=== PATIENT | male | born 1940 | race Caucasian/White ===

== ENCOUNTER 2018-04-16 20:42 | Inpatient (IN) | payer MEDICARE, OTHER, SELFPAY ==
[2018-04-16 20:42] VITALS: BP 140/75; PULSE 86; RESP 20; TEMP 36.7; O2SAT 92; BMI 33.6
[2018-04-16 21:15] VITALS: O2SAT 96
[2018-04-16] MEDS: Aspirin 81 MG TAB.CHEW 324 MG PO (21:28)
[2018-04-16 21:29] LABS: Absolute Lymphocyte Count 0.85 X10^3/ul (0.83-4.51); Absolute Neutrophil Count 2.2 X10^3/uL (2.0-7.7); Basophil# 0.01 X10^3/uL; Basophil% 0.3 % (0-1); Eosinophil# 0.16 X10^3/uL; Eosinophils% 4.4 % (0-5); Hemoglobin 11.9 g/dl (13.0-16.5); Lymphocyte # 0.85 X10^3/ul (4.0); Lymphocyte % 23.3 % (19-41); Mean Corp Hgb Conc 31.3 g/gl (32-36); Mean Corpuscular Hgb 32.8 pg (27.0-32.0); Mean Corpuscular Volume 104.7 fL (80-94); Mean Platelet Vol. 10.7 fl (6.2-12.0); Monocyte# 0.43 X10^3/uL; Monocyte% 11.8 % (0-10); Neutrophil % 60.2 % (47-70); Platelet Count 108 K/mm3 (150-450); RBC Distribution Width CV 15.3 % (11.6-14.6); RBC Distribution Width SD 58.6 fl (35.1-43.9); Red Blood Count 3.63 M/mm3 (4.6-6.2); White Blood Count 3.7 K/mm3 (4.4-11.0)
[2018-04-16 21:30] VITALS: PULSE 88; RESP 18
[2018-04-16 21:30] LABS: POSITIVE COUNT NO; POSITIVE DIFFERENTIAL NO; POSITIVE MORPHOLOGY NO
[2018-04-16] MEDS: Albuterol 2.5 MG/3 ML VIAL.NEB. INHALATION (21:30)
[2018-04-16 22:04] LABS: Anion Gap 7 (5-15); BUN 31 mg/dL (7-18); BUN/Creat Ratio 20.1 RATIO (10-20); Calcium,Total 8.6 mg/dL (8.5-10.1); Chloride 111 mmol/L (98-107); Creatinine, Serum 1.54 mg/dL (0.70-1.30); EST Glomerular Filtration Rate 46 mL/min (>60); Est Glom Filt Rate - Afr Amer 56 mL/min (>60); Estimated Creatinine Clearance 37.01 ml/min; Glucose 98 mg/dL (74-106); Potassium 4.2 mmol/L (3.5-5.1); Sodium Level 143 mmol/L (136-145)
--- NOTE | 2018-04-16 22:24 | ED.DCSUM_ITS ---
- ER Visit Summary Date of Service: 04/16/18 Chief Complaint: Shortness of breath History of Present Illness: The patient is a [address] Aubrey Dailey and his primary care physician is through [facility], but he does not remember the name. He reports he has shortness of breath began 2 days ago. Is severe when he walks around. He is not short of breath at rest. He denies any chest pain, pressure, or tightness. No fever, chills, or cough. Ports that this is similar to when he had pneumonia in the past. Physical Examination: Vitals: Stable. Afebrile. General: Well-nourished and well-developed. Head: Normocephalic atraumatic. Neck: Supple, no lymphadenopathy. No JVD. Nontender. Cardiovascular: Regular rhythm with a 2 out of 6 systolic murmur. Respiratory: No respiratory distress. Rhonchi at the bases bilaterally. He does have mild wheezing with good air movement. Abdominal: Soft, nontender, nondistended, normal bowel sounds. No guarding, rebound, or peritoneal signs. Back: Nontender. Extremities: Nontender, 1+ pitting edema lower extremities bilaterally. Skin: Normal color, no rash. Neurologic: Alert and oriented ?3. Cranial nerves II through XII are intact. Normal strength and sensation. Psych: Normal affect. Test Results: EKG is A. fib at [address] changes. Troponins negative. Chem-7 more for chloride 111, BUN 31, creatinine 1.54. CBC is more for white count 3.7, H&H 11.9 30.0, platelets 108, monocytes of 12. Chest x- ray shows bilateral lower lobe infiltrates and small bilateral pleural effusions. Emergency Department Course and Treatment: Patient was treated with an albuterol aerosol. Is given Rocephin and Zithromax IV. Treatment Plan: Patient was discussed with the hospitalist. He will be admitted to the hospital for further relation and treatment. Disposition: Admitted in improved condition. Impression: 1. Pneumonia, community acquired. 2. Chronic renal insufficiency. This note was generated with [employer].itation software. It may contain incorrect words, spelling, and punctuation that were not noted in review of the chart prior to signing ED Disposition - Plan for ED Patient: Chief Complaint: Shortness of Breath Referrals: Loida Tolentino MD [Primary Care Provider] -
[2018-04-16 22:53] VITALS: BP 138/77; PULSE 86; RESP 22; O2SAT 96
[2018-04-16] MEDS: Ceftriaxone 1 GM/50 ML BAG IV (22:53)
--- NOTE | 2018-04-16 23:07 | PCM.HP.STD ---
Problem List (1) Community acquired pneumonia Status: Acute (2) Atrial fibrillation Status: Chronic (3) Hypertension Status: Chronic (4) S/P CABG x 2 Status: Acute (5) Chronic kidney disease Status: Acute History of Present Illness Date of Admission: 04/16/18 Chief Complaint: Shortness of breath with exertion ?2 to 3 days. The patient is a 78 year old M with a significant history of CVA, CAD status post double CABG and stents; hypertension; A. fib on Coumadin; hyperlipidemia; tobacco abuse; CKD; and questionable COPD who presents with a 3-4 days of progressively worsening shortness of breath with exertion. Also he has some chest discomfort with taking a deep breath. Patient denies any fever, cough, chest pain or chills. Associated with his symptoms is wheezing. Per family last time patient had a pneumonia he had the same symptoms. Past Medical History Past Medical History (Chronic Problems): Chronic Problems Chronic left arterial ischemic stroke, MCA (middle cerebral artery) (Chronic) Hypothyroidism (Chronic) Hyperlipidemia (Chronic) CAD (coronary artery disease) (Chronic) Colon cancer (Chronic) Atrial fibrillation (Chronic) Hypertension (Chronic) Sleep apnea (Chronic) Allergies No Known Allergies Allergy (Verified 04/16/18 20:44) Home Medications: Ambulatory Orders Medication Instructions Recorded Acetaminophen [Tylenol] 325 mg PO PRN PRN 01/17/16 Multivitamin [Daily Multiple 1 tab PO DAILY 01/17/16 Vitamin] Furosemide [Lasix] 40 mg PO DAILY #30 tablet 02/08/16 Gabapentin [Neurontin] 300 mg PO DAILY #30 capsule 02/08/16 Iron Polysaccharide Complex 150 mg PO DAILYCM #30 capsule 02/08/16 [Ferrex 150] traMADol [Ultram] 1 tab PO Q8H PRN PRN #30 tablet 02/08/16 Aspirin [Aspirin, Baby] 81 mg PO DAILY@0800 04/16/18 Atenolol [Tenormin (beta isaiah)] 25 mg PO DAILY 04/16/18 Levothyroxine [Synthroid] 175 mcg PO DAILY 04/16/18 Spironolactone [Spironolactone] 12.5 mg PO DAILY 04/16/18 Warfarin [Coumadin] 5 mg PO DAILY@1700 04/16/18 Surgical History: coronary bypass surgery - x 2, - - Aortic Valve replacement, PFO closure. Psychiatric History: No pertinent psych hx Lives: Alone Smoking Status: Former smoker Tobacco Use: Chew - *Family History Maternal History Items: Cancer, Dementia, Heart Disease Paternal History Items: Cancer, Dementia, Heart Disease Review of Systems Constitutional: Denies: Chills, Fever, Weight Change HEENT: Denies: Head Aches, Sinus Congestion, Sinus Drainage Cardiovascular: Denies: Chest Pain, Palpitations Respiratory: Reports: Shortness of breath upon exertion. Denies: Cough Gastrointestinal: Denies: Abdominal Pain, Nausea, Vomiting Genitourinary: Denies: Dysuria Musculoskeletal: Reports: Arm Pain Skin: Denies: Rash, Wounds Neurological: Denies: Numbness, Tingling, Focal weakness Psychiatric: Denies: Anxiety, Depression, Homicidal Ideations, Suicidal Ideations Hematologic/ Lymphatic: Denies: Easy Bruising, Easy Bleeding VTE Information - Inpt Only VTE Present on Admission: No VTE Mechan Device Prophylaxis: None VTE Pharm Prophylaxis ordered?: No Reason prophylaxis not ordered:: Treatment Not Indicated - On Coumadin Patient Problems: Active and Suspected Problems Community acquired pneumonia (Acute) - Physical Exam General: Alert, Oriented x3, Cooperative HEENT: Atraumatic, PERRLA, EOMI, Normocephalic Neck: Supple, No JVD, Negative Carotid Bruits Lungs: Rales - Bilateral at the middle and lower lung garcia., Wheezes - Mild Cardiovascular: - - Irregularly irregular rate and rhythm. Abdomen: Bowel Sounds Present, Soft, Non Tender Extremities: No edema, Capillary Refill Less than 3 Seconds Skin: No rashes, No breakdown Musculoskeletal: No Tenderness to Palpation of Joints or Extremities Neurological: Cranial nerves II-XII grossly intact Psych/Mental Status: Normal Affect, Appropriate Vital Signs Temp Pulse Resp BP Pulse Ox 98.0 F 86 22 H 138/77 H 96 04/16/18 20:42 04/16/18 22:53 04/16/18 22:53 04/16/18 22:53 04/16/18 22:53 Oxygen Flow Rate (L/min) 2 Oxygen Delivery Method Nasal Cannula Weight: 100.3 kg Body Mass Index (BMI) 33.6 Laboratory Tests Past 24 Hrs 04/16/18 04/16/18 21:19 21:19 WBC 3.7 L RBC 3.63 L Hgb 11.9 L Hct 38.0 L MCV 104.7 H MCH 32.8 H MCHC 31.3 L RDW 15.3 H RDW Differential 58.6 H Plt Count 108 L MPV 10.7 Immature Gran % (Auto) 0.000 Neut % (Auto) 60.2 Lymph % (Auto) 23.3 [place] % (Auto) 11.8 H Eos % (Auto) 4.4 Baso % (Auto) 0.3 Absolute Neuts (auto) 2.2 Absolute Lymphs (auto) 0.85 Total Counted Not Reportable Sodium 143 Potassium 4.2 Chloride 111 H Carbon Dioxide 25.0 Anion Gap 7 BUN 31 H Creatinine 1.54 H Estim Creat Clear Calc 37.01 Est GFR (MDRD) Af Amer 56 L Est GFR (MDRD) Non-Af 46 L BUN/Creatinine Ratio 20.1 H Glucose 98 Calcium 8.6 Troponin I < 0.015 Assessment/Plan All Active Problems Community acquired pneumonia (Acute) Status post patent foramen ovale closure (Acute) Aortic valve replaced (Acute) Chronic kidney disease (Acute) S/P CABG x 2 (Acute) The patient is a 78 year old M with a significant history of CVA, CAD status post double CABG and stents; hypertension; A. fib on Coumadin; hyperlipidemia; tobacco abuse; CKD; and questionable COPD who presents with a 3-4 days of progressively worsening shortness of breath and found to have radiographic findings of bilateral pneumonia right greater than left consistent with community-acquired pneumonia. Committee acquired pneumonia The patient was started on azithromycin and ceftriaxone at the ED. Azithromycin and ceftriaxone continued Streptococcus antigen and Legionella antigen ordered. Scheduled DuoNeb As needed albuterol Chronic atrial fibrillation Coumadin continued. Of note azithromycin can potentiate Coumadin. PT/INR in a.m. CKD Creatinine is stable. COPD Per family the patient has questionable COPD Discussed with patient and family for outpatient comprehensive follow-up. Tobacco abuse Counseled History of CAD status post stents and CABG Aspirin continued Hypertension Aldactone and Lasix continued Hypothyroidism Synthroid continued DVT prophylaxis Not indicated. Patient on Coumadin. Code Visit Inpatient E&M: 75092 Init Hosp L3
[2018-04-16 23:17] VITALS: BP 150/71; PULSE 85; RESP 24; O2SAT 96
[2018-04-16 23:33] VITALS: BMI 33.0
[2018-04-16 23:35] VITALS: BP 142/75; PULSE 86; RESP 20; TEMP 36.6; O2SAT 98
[2018-04-17] VITALS (10 sets, daily range): BP systolic 128–158; BP diastolic 79–101; PULSE 84–105; RESP 16–20; TEMP 36.4–36.8; O2SAT 83–97
[2018-04-17 00:58] LABS: International Normalized Ratio 3.3; Prothrombin Time (Protime)PT. 34.1 SECONDS (11.7-14.9)
[2018-04-17] MEDS: Ipratropium/Albuterol Sulfate 3 ML AMPUL.NEB INHALATION ×4 (05:00→23:46)
[2018-04-17] MEDS: Levothyroxine 175 MCG Tablet PO (05:01)
[2018-04-17 06:38] LABS: Absolute Lymphocyte Count 0.92 X10^3/ul (0.83-4.51); Absolute Neutrophil Count 2.2 X10^3/uL (2.0-7.7); Basophil# 0.02 X10^3/uL; Basophil% 0.5 % (0-1); Eosinophil# 0.18 X10^3/uL; Eosinophils% 4.6 % (0-5); Hematocrit 37.2 % (40-54); Hemoglobin 11.6 g/dl (13.0-16.5); Lymphocyte # 0.92 X10^3/ul (4.0); Lymphocyte % 23.7 % (19-41); Mean Corp Hgb Conc 31.2 g/gl (32-36); Mean Corpuscular Hgb 33.3 pg (27.0-32.0); Mean Corpuscular Volume 106.9 fL (80-94); Mean Platelet Vol. 10.5 fl (6.2-12.0); Monocyte# 0.54 X10^3/uL; Monocyte% 13.9 % (0-10); Neutrophil # 2.22 X10^3/uL (2.7-7.7); Platelet Count 100 K/mm3 (150-450); RBC Distribution Width CV 14.9 % (11.6-14.6); Red Blood Count 3.48 M/mm3 (4.6-6.2); White Blood Count 3.9 K/mm3 (4.4-11.0)
[2018-04-17 06:43] LABS: POSITIVE COUNT NO; POSITIVE DIFFERENTIAL NO; POSITIVE MORPHOLOGY NO
[2018-04-17 07:04] LABS: Anion Gap 10 (5-15); BUN 33 mg/dL (7-18); BUN/Creat Ratio 24.3 RATIO (10-20); Calcium,Total 8.6 mg/dL (8.5-10.1); Chloride 114 mmol/L (98-107); Creatinine, Serum 1.36 mg/dL (0.70-1.30); EST Glomerular Filtration Rate 54 mL/min (>60); Est Glom Filt Rate - Afr Amer 65 mL/min (>60); Estimated Creatinine Clearance 41.91 ml/min; Glucose 93 mg/dL (74-106); Potassium 4.3 mmol/L (3.5-5.1); Sodium Level 146 mmol/L (136-145)
[2018-04-17] MEDS: 0.9% NaCl Peripheral Flush Adult/Peds IV (10:35)
[2018-04-17] MEDS: Ceftriaxone 1 GM/50 ML BAG IV (10:35)
[2018-04-17] MEDS: Furosemide 40 MG Tablet PO (10:38)
[2018-04-17] MEDS: Gabapentin 300 MG Capsule PO (10:38)
[2018-04-17] MEDS: Atenolol 25 MG Tablet PO (10:38)
[2018-04-17] MEDS: Spironolactone 25 MG Tablet 12.5 MG PO (10:38)
[2018-04-17] MEDS: Multivitamins,Therapeutic Tablet 1 TABLET PO (10:42)
[2018-04-17] MEDS: Aspirin 81 MG TAB.CHEW PO (10:42)
[2018-04-17] MEDS: Iron Polysaccharide Complex 150 MG CAPSULE PO (10:42)
--- NOTE | 2018-04-17 11:55 | CASEMGMT ---
Face to Face with patient for initial transition planning/care coordination assessment. DULCE MIRANDA introduced self and role at [facility], daughter voices understanding and consents to assessment at this time. Pt is in the bathroom chaning at this time in no distress. Care providers, pharmacy, and demographics verified. See attached link. Pt/daughter voice no further concerns/needs at this time. Advised pt to ask for CM if any further questions/concerns/needs arise, voices understanding. CM to follow for home oxygen and any further discharge planning/needs. PLAN[place] D[place]DA
--- NOTE | 2018-04-17 12:19 | PCM.PROGNOTE ---
Patient Problems: Active and Suspected Problems Community acquired pneumonia (Acute) Subjective: Patient seen and examined. States shortness of breath is improved since admission. Complains of intermittent productive cough with dark sputum. Denies fever, chills. Denies chest pain. - Physical Exam General: Alert, Oriented x3, Cooperative, No apparent distress HEENT: Atraumatic, PERRLA, EOMI, Normocephalic Neck: Supple, No JVD, Negative Carotid Bruits Lungs: Diminished, Rales Cardiovascular: Regular rate, Regular Rhythm, Normal S1, Normal S2 Abdomen: Bowel Sounds Present, Soft, Non Tender, Non-Distended Extremities: No clubbing, No cyanosis, No edema, Capillary Refill Less than 3 Seconds Skin: No rashes, No breakdown Musculoskeletal: No Tenderness to Palpation of Joints or Extremities Neurological: Cranial nerves II-XII grossly intact, Neuro grossly intact Psych/Mental Status: Normal Affect, Appropriate Vital Signs Temp Pulse Resp BP Pulse Ox 97.6 F L 87 16 158/101 H 97 04/17/18 09:45 04/17/18 09:45 04/17/18 09:45 04/17/18 09:45 04/17/18 09:45 Oxygen Flow Rate (L/min) 2 Oxygen Delivery Method Nasal Cannula Weight: 217 lb 2.485 oz Body Mass Index (BMI) 33.0 Intake and Output for Last 24 Hours 04/15/18 04/16/18 04/17/18 23:59 23:59 23:59 Intake Total 498.8 / 498.8 Output Total 200 / 200 Balance 298.8 / 298.8 Microbiology Past 72 Hours 04/17/18 04:55 Legionella Antigen - Final Urine, Clean Catch 04/17/18 04:55 Streptococcus pneumoniae Antigen (M - Final Urine, Clean Catch Laboratory Tests Past 24 Hrs 04/17/18 04/17/18 05:55 05:55 WBC 3.9 L RBC 3.48 L Hgb 11.6 L Hct 37.2 L MCV 106.9 H MCH 33.3 H MCHC 31.2 L RDW 14.9 H RDW Differential 57.0 H Plt Count 100 L MPV 10.5 Immature Gran % (Auto) 0.300 Neut % (Auto) 57.0 Lymph % (Auto) 23.7 [place] % (Auto) 13.9 H Eos % (Auto) 4.6 Baso % (Auto) 0.5 Absolute Neuts (auto) 2.2 Absolute Lymphs (auto) 0.92 Total Counted Not Reportable Sodium 146 H Potassium 4.3 Chloride 114 H Carbon Dioxide 22.0 Anion Gap 10 BUN 33 H Creatinine 1.36 H Estim Creat Clear Calc 41.91 Est GFR (MDRD) Af Amer 65 Est GFR (MDRD) Non-Af 54 L BUN/Creatinine Ratio 24.3 H Glucose 93 Calcium 8.6 Medical Necessity - Tobacco Use Smoking Status: Former smoker Tobacco Use: Chew Assessment/Plan All Active Problems Community acquired pneumonia (Acute) Status post patent foramen ovale closure (Acute) Aortic valve replaced (Acute) Chronic kidney disease (Acute) S/P CABG x 2 (Acute) 1. Community acquired pneumonia with associated acute hypoxia-chest x-ray admission with small bilateral pleural effusions, bilateral lower lobe pneumonia. Afebrile. No leukocytosis. Continue supplement oxygen to maintain O2 at or above 90%. Patient will require walking pulse ox prior to discharge. Continue albuterol and DuoNeb aerosols. Continue azithromycin and Rocephin. Urine for strep and Legionella negative. Send sputum for culture. IS/PEP. 2. Chronic atrial fibrillation on chronic anticoagulation with Coumadin-rate controlled. Continue atenolol and Coumadin. INR 3.3 on admission. 3. Chronic kidney disease-stable, monitor BMP. 4. CAD status post CABG and stents-continue aspirin, beta-isaiah. 5. COPD-no acute exacerbation. Continue outpatient follow-up with Dr. Caldera. 6. Hypertension-stable, continue home regimen. 7. Hypothyroidism-continue Synthroid. 8. History of tobacco use-denies recent or current use. 9. Iron deficiency anemia-continue iron supplementation. DVT prophylaxis-Coumadin This patient was seen by CHRISTINA oMtley under the supervision of Dr. Maldonado.
[2018-04-18 02:45] VITALS: BP 131/72; PULSE 105; RESP 18; TEMP 36.6; O2SAT 96
[2018-04-18] MEDS: Levothyroxine 175 MCG Tablet PO (06:52)
[2018-04-18 06:59] VITALS: PULSE 84; RESP 20; O2SAT 93
[2018-04-18] MEDS: Ipratropium/Albuterol Sulfate 3 ML AMPUL.NEB INHALATION (06:59)
[2018-04-18 08:04] LABS: Hemoglobin 11.4 g/dl (13.0-16.5); Mean Corp Hgb Conc 30.8 g/gl (32-36); Mean Corpuscular Hgb 32.7 pg (27.0-32.0); Mean Platelet Vol. 10.5 fl (6.2-12.0); Platelet Count 103 K/mm3 (150-450); RBC Distribution Width CV 15.2 % (11.6-14.6); RBC Distribution Width SD 58.9 fl (35.1-43.9); Red Blood Count 3.49 M/mm3 (4.6-6.2); White Blood Count 4.5 K/mm3 (4.4-11.0)
[2018-04-18 08:07] LABS: Scan Indicated on CBC? Y/N NO
[2018-04-18 08:15] LABS: International Normalized Ratio 3.4; Prothrombin Time (Protime)PT. 34.5 SECONDS (11.7-14.9)
[2018-04-18 08:18] VITALS: BP 139/82; PULSE 113; RESP 18; TEMP 36.8; O2SAT 91
[2018-04-18 08:21] VITALS: O2SAT 88; O2SAT 90; O2SAT 93
[2018-04-18] MEDS: Multivitamins,Therapeutic Tablet 1 TABLET PO (08:31)
[2018-04-18] MEDS: Iron Polysaccharide Complex 150 MG CAPSULE PO (08:31)
[2018-04-18] MEDS: Aspirin 81 MG TAB.CHEW PO (08:31)
[2018-04-18 08:47] LABS: Anion Gap 7 (5-15); BUN 22 mg/dL (7-18); BUN/Creat Ratio 15.6 RATIO (10-20); Calcium,Total 8.8 mg/dL (8.5-10.1); Chloride 112 mmol/L (98-107); Creatinine, Serum 1.41 mg/dL (0.70-1.30); EST Glomerular Filtration Rate 51 mL/min (>60); Est Glom Filt Rate - Afr Amer 62 mL/min (>60); Estimated Creatinine Clearance 40.43 ml/min; Glucose 92 mg/dL (74-106); Potassium 4.4 mmol/L (3.5-5.1); Sodium Level 141 mmol/L (136-145)
--- NOTE | 2018-04-18 09:45 | CM.UR ---
Addendum entered by Maria Elena Edmonds 04/18/18 09:59: Met with patient and his daughter to discuss oxygen. Explained it should be here by noon. Instructed on the portable tank and concentrator that will be in home. Explained [facility] will explain in more detail. Instructed him that we anticipate him only needing it short term and that when his doctor tells him he no longer needs it at all to notify [facility] so that it can be returned and no longer billed to his insurance. Verb understanding. Madhuri Edmonds RN, CCM. Original Note: Patient is being discharged to home today. Patient does need home oxygen. spoke with Rafael at [facility] and arranged for oxygen portable tank be here by noon. Order for oxygen and nebulizer, demographics, insurance and qualification forms printed and I offered to fax but Rafael states he will pick it up when he drops off tank. Madhuri Edmonds RN, CCM.
--- NOTE | 2018-04-18 09:49 | PCM.DC ---
- Discharge Diagnoses Current Active Problems: Current Active and Chronic Problems Community acquired pneumonia (Acute) You will use the following diet at home:: Cardiac Discharge Activity: Return to Normal Activity Call your doctor if you observe: Shortness of breath, Dizziness, Fainting spells, Chest pain Additional Instructions: Continue supplemental oxygen to maintain O2 at or above 90%. You will hold your Coumadin tonight and tomorrow night. Repeat INR Friday morning, 04/20/2018. Further Coumadin recommendations per Dr. Lomeli, F cardiology. Allergies/Adverse Reactions: Allergies No Known Allergies Allergy (Verified 04/16/18 20:44) Medications to take at Discharge Acetaminophen [Tylenol] 325 mg PO PRN PRN 01/17/16 Multivitamin [Daily Multiple Vitamin] 1 tab PO DAILY 01/17/16 Furosemide [Lasix] 40 mg PO DAILY #30 tablet 02/08/16 Gabapentin [Neurontin] 300 mg PO DAILY #30 capsule 02/08/16 Iron Polysaccharide Complex [Ferrex 150] 150 mg PO DAILYCM #30 capsule 02/08/16 traMADol [Ultram] 1 tab PO Q8H PRN PRN #30 tablet 02/08/16 Aspirin [Aspirin, Baby] 81 mg PO DAILY@0800 04/16/18 Atenolol [Tenormin (beta isaiah)] 25 mg PO DAILY 04/16/18 Levothyroxine [Synthroid] 175 mcg PO DAILY 04/16/18 Spironolactone 12.5 mg PO DAILY 04/16/18 Warfarin [Coumadin] 5 mg PO DAILY@1700 04/16/18 Albuterol Aerosols [Ventolin Aerosols] 2.5 mg INHALATION Q2H PRN PRN #90 vial.neb. 04/18/18 Azithromycin 500 mg PO DAILY #1 tab 04/18/18 Cefdinir [Omnicef [equiv]] 300 mg PO Q12H #12 cap 04/18/18 Ipratropium/Albuterol Sulfate [Duoneb] 3 ml INHALATION Q6H.RT #90 ampul.neb 04/18/18 The following prescriptions were given: Albuterol Aerosols [Ventolin Aerosols] 2.5 mg INHALATION Q2H PRN PRN #90 vial.neb. PRN Reason: SHORTNESS OF BREATH Ipratropium/Albuterol Sulfate [Duoneb] 3 ml INHALATION Q6H.RT #90 ampul.neb Azithromycin 500 mg PO DAILY #1 tab Cefdinir [Omnicef [equiv]] 300 mg PO Q12H #12 cap Orders to be completed after discharge: Prothrombin Time w/INR Time Frame: 04/20/18, Location: Laboratory Primary Care Physician: Loida Tolentino MD [Primary Care Provider] - Please follow up with your Primary Care Physician in: As scheduled Test Results: Test results from this visit will be discussed in further detail at your follow-up appointment, if applicable. Please Follow Up With: Darci Caldera MD When: 2 Weeks Proposed Discharge Date: 04/18/18
--- NOTE | 2018-04-18 09:57 | PCM.DC.SUM ---
Discharge Date and Diagnosis Date of Admission: 04/16/18 Date of Discharge: 04/18/18 - Primary Discharge Diagnosis Active and Suspected Problems 1. Acute community-acquired pneumonia with associated acute hypoxia - Secondary Discharge Diagnosis Chronic Problems Chronic left arterial ischemic stroke, MCA (middle cerebral artery) (Chronic) Hypothyroidism (Chronic) Hyperlipidemia (Chronic) CAD (coronary artery disease) (Chronic) Colon cancer (Chronic) Atrial fibrillation (Chronic) Hypertension (Chronic) Sleep apnea (Chronic) Hospital Course and Treatment Imaging Results: Diagnostic Data Chest X-Ray 04/16/18 21:15 IMPRESSION: Small bilateral pleural effusions. Bilateral lower lobe pneumonia. Electronically Signed: Joe Mcclure MD at 21:58 EDT , Service support , Operations: None Procedures: None Summary of Care Provided: The patient is a 78 year old M admitted 04/16/2018 due to shortness of breath. He has a past medical history of chronic atrial fibrillation on chronic anticoagulation with Coumadin, chronic kidney disease stage III, CAD status post CABG and stents, COPD, hypertension, hypothyroidism, history of tobacco use, iron deficiency anemia. 1. Community acquired pneumonia with associated acute hypoxia-chest x-ray admission with small bilateral pleural effusions, bilateral lower lobe pneumonia. Afebrile. No leukocytosis. Patient required supplemental oxygen at discharge. Patient will wear 2 L nasal cannula with ambulation. He is ambulatory in the home. He was instructed to obtain a pulse oximeter to monitor his oxygen to maintain O2 saturation greater than 90%. Patient discharged with nebulizer for albuterol and DuoNeb aerosol treatments due to acute hypoxia and acute community acquired pneumonia as well as history of COPD. He will be discharged with Omnicef 300 mg twice daily for 6 more days of antibiotic therapy. He will complete 1 more day of oral azithromycin 500 mg. Sputum culture pending at discharge. 2. Chronic atrial fibrillation on chronic anticoagulation with Coumadin-rate controlled. Continue atenolol and Coumadin. INR 3.4 on admission. Patient will hold Coumadin 04/18 and 04/19. He will have his INR rechecked Friday morning, 04/20/2018 with further dosing recommendations per Dr. Lomeli, F cardiology. 3. Chronic kidney disease stage III-stable. 4. CAD status post CABG and stents-continue aspirin, beta-isaiah. 5. COPD-no acute exacerbation. Continue outpatient follow-up with Dr. Caldera. Patient to follow-up with Dr. Caldera in 2 weeks. Recommend pulmonary function testing. 6. Hypertension-stable, continue home regimen. 7. Hypothyroidism-continue Synthroid. 8. History of tobacco use-denies recent or current use. 9. Iron deficiency anemia-continue iron supplementation. General: Alert, Oriented x3, Cooperative, No apparent distress HEENT: Atraumatic, PERRLA, EOMI, Normocephalic Neck: Supple, No JVD, Negative Carotid Bruits Lungs: Diminished, minimal rales left base Cardiovascular: Regular rate, Regular Rhythm, Normal S1, Normal S2 Abdomen: Bowel Sounds Present, Soft, Non Tender, Non-Distended Extremities: No clubbing, No cyanosis, No edema, Capillary Refill Less than 3 Seconds Skin: No rashes, No breakdown Musculoskeletal: No Tenderness to Palpation of Joints or Extremities Neurological: Cranial nerves II-XII grossly intact, Neuro grossly intact Psych/Mental Status: Normal Affect, Appropriate Patient seen exam prior to discharge. Physical assessment as noted above. Patient stable for discharge home with the follow-up her conditions as noted above. This patient was seen by CHRISTINA Motley under the supervision of Dr. Maldonado. Discharge Diet: Low fat/ Low Cholesterol Discharge Activity: Return to Normal Activity Call your doctor if you observe: Shortness of breath, Dizziness, Fainting spells, Chest pain Home Medications: Medications to take at Discharge Acetaminophen [Tylenol] 325 mg PO PRN PRN 01/17/16 Multivitamin [Daily Multiple Vitamin] 1 tab PO DAILY 01/17/16 Furosemide [Lasix] 40 mg PO DAILY #30 tablet 02/08/16 Gabapentin [Neurontin] 300 mg PO DAILY #30 capsule 02/08/16 Iron Polysaccharide Complex [Ferrex 150] 150 mg PO DAILYCM #30 capsule 02/08/16 traMADol [Ultram] 1 tab PO Q8H PRN PRN #30 tablet 02/08/16 Aspirin [Aspirin, Baby] 81 mg PO DAILY@0800 04/16/18 Atenolol [Tenormin (beta isaiah)] 25 mg PO DAILY 04/16/18 Levothyroxine [Synthroid] 175 mcg PO DAILY 08/16/18 Spironolactone 12.5 mg PO DAILY 04/16/18 Warfarin [Coumadin] 5 mg PO DAILY@1700 04/16/18 Albuterol Aerosols [Ventolin Aerosols] 2.5 mg INHALATION Q2H PRN PRN #90 vial.neb. 04/18/18 Azithromycin 500 mg PO DAILY #1 tab 04/18/18 Cefdinir [Omnicef [equiv]] 300 mg PO Q12H #12 cap 04/18/18 Ipratropium/Albuterol Sulfate [Duoneb] 3 ml INHALATION Q6H.RT #90 ampul.neb 04/18/18 Following Prescrptions Were Given to Patient: Albuterol Aerosols [Ventolin Aerosols] 2.5 mg INHALATION Q2H PRN PRN #90 vial.neb. PRN Reason: SHORTNESS OF BREATH Ipratropium/Albuterol Sulfate [Duoneb] 3 ml INHALATION Q6H.RT #90 ampul.neb Azithromycin 500 mg PO DAILY #1 tab Cefdinir [Omnicef [equiv]] 300 mg PO Q12H #12 cap Other Amb Orders: Prothrombin Time w/INR Time Frame: 04/20/18, Location: Laboratory Primary Care Physician: Loida Tolentino MD [Primary Care Provider] - Please follow up with your Primary Care Physician in: As scheduled Please Follow Up With: Darci Caldera MD When: 2 Weeks Disposition: Home Minutes spent on discharge:: 35 Patient Condition:: Stable Medical Necessity - Tobacco Use Smoking Status: Former smoker Tobacco Use: Chew Meaningful Use Info Meaningful Use Diagnoses (Choose all that apply): None applicable
--- NOTE | 2018-04-18 10:04 | DS.PCM_ITS ---
Discharge Date and Diagnosis Date of Admission: 04/16/18 Date of Discharge: 04/18/18 - Primary Discharge Diagnosis Active and Suspected Problems 1. Acute community-acquired pneumonia with associated acute hypoxia - Secondary Discharge Diagnosis Chronic Problems Chronic left arterial ischemic stroke, MCA (middle cerebral artery) (Chronic) Hypothyroidism (Chronic) Hyperlipidemia (Chronic) CAD (coronary artery disease) (Chronic) Colon cancer (Chronic) Atrial fibrillation (Chronic) Hypertension (Chronic) Sleep apnea (Chronic) Hospital Course and Treatment Imaging Results: Diagnostic Data Chest X-Ray 04/16/18 21:15 IMPRESSION: Small bilateral pleural effusions. Bilateral lower lobe pneumonia. Electronically Signed: Joe Mcclure MD at 21:58 EDT , Service support , Operations: None Procedures: None Summary of Care Provided: The patient is a 78 year old M admitted 04/16/2018 due to shortness of breath. He has a past medical history of chronic atrial fibrillation on chronic anticoagulation with Coumadin, chronic kidney disease stage III, CAD status post CABG and stents, COPD, hypertension, hypothyroidism, history of tobacco use , iron deficiency anemia. 1. Community acquired pneumonia with associated acute hypoxia-chest x-ray admission with small bilateral pleural effusions, bilateral lower lobe pneumonia. Afebrile. No leukocytosis. Patient required supplemental oxygen at discharge. Patient will wear 2 L nasal cannula with ambulation. He is ambulatory in the home. He was instructed to obtain a pulse oximeter to monitor his oxygen to maintain O2 saturation greater than 90%. Patient discharged with nebulizer for albuterol and DuoNeb aerosol treatments due to acute hypoxia and acute community acquired pneumonia as well as history of COPD. He will be discharged with Omnicef 300 mg twice daily for 6 more days of antibiotic therapy. He will complete 1 more day of oral azithromycin 500 mg. Sputum culture pending at discharge. 2. Chronic atrial fibrillation on chronic anticoagulation with Coumadin-rate controlled. Continue atenolol and Coumadin. INR 3.4 on admission. Patient will hold Coumadin 04/18 and 04/19. He will have his INR rechecked Friday morning , 04/20/2018 with further dosing recommendations per Dr. Lomeli, F cardiology. 3. Chronic kidney disease stage III-stable. 4. CAD status post CABG and stents-continue aspirin, beta-isaiah. 5. COPD-no acute exacerbation. Continue outpatient follow-up with Dr. Caldera. Patient to follow-up with Dr. Caldera in 2 weeks. Recommend pulmonary function testing. 6. Hypertension-stable, continue home regimen. 7. Hypothyroidism-continue Synthroid. 8. History of tobacco use-denies recent or current use. 9. Iron deficiency anemia-continue iron supplementation. General: Alert, Oriented x3, Cooperative, No apparent distress HEENT: Atraumatic, PERRLA, EOMI, Normocephalic Neck: Supple, No JVD, Negative Carotid Bruits Lungs: Diminished, minimal rales left base Cardiovascular: Regular rate, Regular Rhythm, Normal S1, Normal S2 Abdomen: Bowel Sounds Present, Soft, Non Tender, Non-Distended Extremities: No clubbing, No cyanosis, No edema, Capillary Refill Less than 3 Seconds Skin: No rashes, No breakdown Musculoskeletal: No Tenderness to Palpation of Joints or Extremities Neurological: Cranial nerves II-XII grossly intact, Neuro grossly intact Psych/Mental Status: Normal Affect, Appropriate Patient seen exam prior to discharge. Physical assessment as noted above. Patient stable for discharge home with the follow-up her conditions as noted above. This patient was seen by CHRISTINA Motley under the supervision of Dr. Maldonado. Discharge Diet: Low fat/ Low Cholesterol Discharge Activity: Return to Normal Activity Call your doctor if you observe: Shortness of breath, Dizziness, Fainting spells , Chest pain Home Medications: Medications to take at Discharge Acetaminophen [Tylenol] 325 mg PO PRN PRN 01/17/16 Multivitamin [Daily Multiple Vitamin] 1 tab PO DAILY 01/17/16 Furosemide [Lasix] 40 mg PO DAILY #30 tablet 02/08/16 Gabapentin [Neurontin] 300 mg PO DAILY #30 capsule 02/08/16 Iron Polysaccharide Complex [Ferrex 150] 150 mg PO DAILYCM #30 capsule 02/08/16 traMADol [Ultram] 1 tab PO Q8H PRN PRN #30 tablet 02/08/16 Aspirin [Aspirin, Baby] 81 mg PO DAILY@0800 04/16/18 Atenolol [Tenormin (beta isaiah)] 25 mg PO DAILY 04/16/18 Levothyroxine [Synthroid] 175 mcg PO DAILY 08/16/18 Spironolactone 12.5 mg PO DAILY 04/16/18 Warfarin [Coumadin] 5 mg PO DAILY@1700 04/16/18 Albuterol Aerosols [Ventolin Aerosols] 2.5 mg INHALATION Q2H PRN PRN #90 vial.neb. 04/18/18 Azithromycin 500 mg PO DAILY #1 tab 04/18/18 Cefdinir [Omnicef [equiv]] 300 mg PO Q12H #12 cap 04/18/18 Ipratropium/Albuterol Sulfate [Duoneb] 3 ml INHALATION Q6H.RT #90 ampul.neb Following Prescrptions Were Given to Patient: Albuterol Aerosols [Ventolin Aerosols] 2.5 mg INHALATION Q2H PRN PRN #90 vial.neb. PRN Reason: SHORTNESS OF BREATH Ipratropium/Albuterol Sulfate [Duoneb] 3 ml INHALATION Q6H.RT #90 ampul.neb Azithromycin 500 mg PO DAILY #1 tab Cefdinir [Omnicef [equiv]] 300 mg PO Q12H #12 cap Other Amb Orders: Prothrombin Time w/INR Time Frame: 04/20/18, Location: Laboratory Primary Care Physician: Loida Tolentino MD [Primary Care Provider] - Please follow up with your Primary Care Physician in: As scheduled Please Follow Up With: Darci Caldera MD When: 2 Weeks Disposition: Home Minutes spent on discharge:: 35 Patient Condition:: Stable Medical Necessity - Tobacco Use Smoking Status: Former smoker Tobacco Use: Chew Meaningful Use Info Meaningful Use Diagnoses (Choose all that apply): None applicable
[2018-04-18 10:18] VITALS: BP 140/79; PULSE 66; RESP 18; TEMP 36.8; O2SAT 97
[2018-04-18] MEDS: Spironolactone 25 MG Tablet 12.5 MG PO (10:49)
[2018-04-18] MEDS: Atenolol 25 MG Tablet PO (10:50)
[2018-04-18] MEDS: Furosemide 40 MG Tablet PO (10:50)
[2018-04-18] MEDS: Gabapentin 300 MG Capsule PO (10:50)
[2018-04-18] MEDS: Ceftriaxone 1 GM/50 ML BAG IV (12:14)
== END 2018-04-18 12:50 | disposition home or self-care (01) | DRG 190 ==
LOC: ED 21:26 → PCU 23:18
PROVIDERS: Nurse Practitioner Family; Admitting Provider Hospitalist; Emergency Provider Emergency Medicine; Family Provider Internal Medicine; PCP Internal Medicine; Visit Provider Family Medicine
DX: J44.0 Chronic obstructive pulmonary disease with (acute) lower respiratory infection (principal); J18.9 Pneumonia, unspecified organism; I48.2 Chronic atrial fibrillation; I25.10 Atherosclerotic heart disease of native coronary artery without angina pectoris; N18.3 Chronic kidney disease, stage 3 (moderate); D50.9 Iron deficiency anemia, unspecified; E03.9 Hypothyroidism, unspecified; R09.02 Hypoxemia; D69.6 Thrombocytopenia, unspecified; E78.5 Hyperlipidemia, unspecified; E66.9 Obesity, unspecified; I12.9 Hypertensive chronic kidney disease with stage 1 through stage 4 chronic kidney disease, or unspecified chronic kidney disease; Z68.33 Body mass index [BMI] 33.0-33.9, adult; Z86.73 Personal history of transient ischemic attack (TIA), and cerebral infarction without residual deficits; Z72.0 Tobacco use; Z95.1 Presence of aortocoronary bypass graft; Z95.5 Presence of coronary angioplasty implant and graft; Z79.01 Long term (current) use of anticoagulants; D72.819 Decreased white blood cell count, unspecified
CPT/HCPCS: 36415; 71045; 80048; 84484; 85025; 85027; 85610; 87070; 87077; 87186; 87205; 87449; 93005; 94640; 97110; 97116; 97162; 97165; 99285; 99406; A4216

== ENCOUNTER 2019-11-08 17:19 | Inpatient (IN) | payer MEDICARE, SELFPAY ==
[2019-11-08 17:19] VITALS: BP 122/75; PULSE 78; RESP 16; TEMP 36.1; O2SAT 95; BMI 32.6
--- NOTE | 2019-11-08 17:32 | EKG12_ITS ---
Test Reason : Blood Pressure : / mmHG Vent. Rate : 076 BPM Atrial Rate : 340 BPM P-R Int : 000 ms QRS Dur : 154 ms QT Int : 438 ms P-R-T Axes : 000 116 017 degrees QTc Int : 492 ms Atrial fibrillation Right bundle branch block Abnormal ECG Confirmed by MATHEUS BEDOYA, MARIANA ([id number]), subeditor SAMMIE WHIPPLE ([id number]) on 11/09/2019 1:45:12 PM Referred By: GOKUL Confirmed By:MARIANA JARVIS MD
--- NOTE | 2019-11-08 17:32 | CT_ITS ---
STUDY: CT BRAIN WITHOUT CONTRAST REASON FOR EXAM: Male, 79 years old. Dizziness RADIATION DOSAGE (If Supplied By Facility): DLP = ( 1067.08 ) mGycm TECHNIQUE: Transaxial CT imaging of the brain was performed without administration of intravenous contrast material. Individualized dose optimization techniques were used for this CT. COMPARISON: None. FINDINGS: There is no acute bleed or infarct. There are prominent chronic ischemic and atrophic changes. Left subinsular encephalomalacia is present. The ventricles are normal in configuration. There is no hydrocephalus. The visualized paranasal sinuses are clear. The mastoid air cells are well aerated. There is no skull fracture. CT/Brain/Head without Contrast IMPRESSION: No evidence of acute intracranial bleed. Prominent chronic ischemic and atrophic changes with left subinsular encephalomalacia, likely chronic. If continued clinical concern for acute on chronic disease, CTA/MRI is suggested. Electronically Signed: Riaz Lu, at 18:53 EDT Tel , Service support ,
--- NOTE | 2019-11-08 17:34 | ED.DCSUM_ITS ---
History of Present Illness Chief Complaint: Dizziness Informant: Patient Onset: Days Context: Gradual Onset Timing: Intermittent Current Severity: Moderate Maximum Severity: Moderate Narrative: The patient is an 79-year-old male with medical history significant for aortic valve repair, prior bypass surgery, CHF, and history of colon cancer that presents to the emergency department with dizziness. Patient describes it as lightheadedness and sensation of motion. He states his been going on for the past 2 days. He is on Coumadin. He states that he is also had some dark stools. He denies any history of prior GI bleeding. History is hard to gather from the patient as he does not know all of his medical conditions. Family states he is just not felt well in 2 days. He denies any fevers or chills. He denies orthopnea but does admit to some shortness of breath. Prior similar symptoms: No Recent Illness/Hospitalization: No Past Medical History - Allergies and Home Meds Allergies/Adverse Reactions: Allergies No Known Allergies Allergy (Verified 04/16/18 20:44) Primary Care Physician: Loida Tolentino MD [Primary Care Provider] - Prior records reviewed: Yes Past Medical History: - - Prior CABG, hypertension, CHF Surgical History: coronary bypass surgery - x 2, - - Aortic Valve replacement, PFO closure. Smoking Status: Former smoker - Family History Maternal Family History: Reports: Cancer, Dementia, Heart Disease Paternal Family History: Reports: Cancer, Dementia, Heart Disease Review of Systems General: Reports: Malaise. Denies: Chills, Fever, Sweats Eyes: Denies: Visual changes - bilaterally, Diplopia ENT: Denies: Rhinorrhea, Sore throat Cardiovascular: Denies: Chest pain, Palpitations Respiratory: Reports: Dyspnea. Denies: Cough, Dyspnea on exertion Gastrointestinal: Denies: Abdominal pain, Nausea, Vomiting, Diarrhea, Melena, Hematochezia Genitourinary: Denies: Dysuria, Hematuria, Frequency Musculoskeletal: Denies: Back pain, Extremity Pain Skin: Denies: Rash, Wounds Neurological: Denies: Headache, Weakness, Numbness Physical Exam Vital Signs/Narrative: Vital Signs Temp Pulse Resp BP Pulse Ox 11/08/19 17:19 97 F L 78 16 122/75 H 95 Inital Vital Signs reviewed: Yes General: Well nourished, Well developed, No Acute Distress Head: Normocephalic, Atraumatic Eyes: Perrl, EOMI ENT: Moist mucous membranes, No rhinorrhea Neck: Supple, Nontender Cardiovascular: Regular rate, Regular rhythm, No murmurs Respiratory: No distress, CTA bilaterally, Chest nontender Abdomen: Soft, Nontender, Nondistended, Normal bowel sounds Back: Nontender, Normal Inspection Extremities: Nontender, No edema Skin: Normal color, No rash Neurological: Alert, Oriented x3, Cranial nerves II-XII grossly intact, Normal Strength, Normal Sensation Psychological: Normal affect, Normal Mood Diagnostic/Tx/Re-eval Chest X-Ray - ED: 2 View, Right Infiltrate, Left Infiltrate Clinical Impression(s) from Imaging Studies Chest X-Ray 11/08/19 17:40 IMPRESSION: Moderate bilateral patchy pulmonary infiltrates. Electronically Signed: Riaz Lu, at 18:09 EDT Tel , Service support , Abnormal Lab Results 11/08/19 11/08/19 11/08/19 17:35 17:35 17:35 WBC 5.2 RBC 2.61 L Hgb 8.7 L Hct 28.6 L MCV 109.6 H MCH 33.3 H MCHC 30.4 L RDW Std Deviation 62.5 H RDW Coeff of Rob 17.2 H Plt Count 108 L MPV 9.3 Immature Gran % (Auto) 0.600 Neut % (Auto) 67.3 Lymph % (Auto) 15.8 L [place] % (Auto) 13.4 H Eos % (Auto) 2.3 Baso % (Auto) 0.6 Absolute Neuts (auto) 3.5 Absolute Lymphs (auto) 0.83 Nucleated RBC % 0.4 PT 39.4 H INR 4.0 H* Sodium 139 Potassium 4.8 Chloride 111 H Carbon Dioxide 23.0 Anion Gap 5 BUN 53 H Creatinine 2.39 H Estim Creat Clear Calc 23.45 Est GFR (MDRD) Af Amer 34 L Est GFR (MDRD) Non-Af 28 L BUN/Creatinine Ratio 22.2 H Glucose 88 Calcium 8.3 L Total Bilirubin 0.50 AST 32 ALT 30 Alkaline Phosphatase 121 H Troponin I 0.086 H Total Protein 8.0 Albumin 3.1 L Globulin 4.9 H Albumin/Globulin Ratio 0.6 L - Rhythm Strip Rhythm Strip: A-fib Rate: 70 Ectopy: PAC(s) - EKG Initial EKG Interpretation: No Acute Injury Pattern, Atrial Fibrillation, RBBB Prior: Unchanged - Medical Decision Making The patient presents to the emergency department with exertional dyspnea, dizziness, and scant cough. He does follow with pulmonology. He is also had history of aortic valve replacement with pig valve and is on Coumadin. His last echo showed ejection fraction of 54%. Rectal exam was done given the patient's reported history of dark stools. There was no gross blood. It was guaiac negative. Screening labs do show anemia, but his old labs I have to compare to were from 3 years ago. Chest x-ray shows bilateral patchy infiltrates. With his cough and dyspnea, I am going to cover him for community-acquired pneumonia, but I also have suspicion this may be secondary to underlying CHF. Given the patient's advanced age and comorbidities, I do feel that he would benefit from admission for monitoring of his renal function and treatment of his respiratory infection. Impression 1. Exertional dyspnea 2. CHF exacerbation 3. Community-acquired pneumonia ED Disposition - Plan for ED Patient: Referrals: Loida Tolentino MD [Primary Care Provider] -
--- NOTE | 2019-11-08 17:40 | RAD_ITS ---
STUDY: X-RAY CHEST REASON FOR EXAM: Male, 79 years old. Shortness of breath TECHNIQUE: Frontal view of the chest COMPARISON: X-ray chest April 16, 2018 FINDINGS: Moderate bilateral patchy pulmonary infiltrates are present. There are no pleural effusions. There is no pneumothorax. The heart is enlarged. The visualized osseous structures are within normal limits. RAD/Chest 1 View (Portable) IMPRESSION: Moderate bilateral patchy pulmonary infiltrates. Electronically Signed: Riaz Lu, at 18:09 EDT Tel , Service support ,
[2019-11-08 17:48] LABS: Absolute Lymphocyte Count 0.83 X10^3/uL (0.83-4.51); Absolute Neutrophil Count 3.5 X10^3/uL (2.0-7.7); Basophil# 0.03 X10^3/uL; Basophil% 0.6 % (0-1); Eosinophil# 0.12 X10^3/uL; Eosinophils% 2.3 % (0-5); Hematocrit 28.6 % (40-54); Hemoglobin 8.7 g/dL (13.0-16.5); Lymphocyte # 0.83 X10^3/ul (4.0); Lymphocyte % 15.8 % (19-41); Mean Corp Hgb Conc 30.4 g/dL (32-36); Mean Corpuscular Hgb 33.3 pg (27.0-32.0); Mean Corpuscular Volume 109.6 fL (80-94); Mean Platelet Vol. 9.3 fl (6.2-12.0); Monocyte% 13.4 % (0-10); NRBC Flagged by Analyzer 0.4 % (0-5); Neutrophil # 3.53 X10^3/uL (2.7-7.7); Neutrophil % 67.3 % (47-70); Platelet Count 108 K/mm3 (150-450); RBC Distribution Width CV 17.2 % (11.6-14.6); RBC Distribution Width SD 62.5 fl (35.1-43.9); Red Blood Count 2.61 M/mm3 (4.6-6.2); White Blood Count 5.2 K/mm3 (4.4-11.0)
[2019-11-08 18:05] LABS: Prothrombin Time (Protime)PT. 39.4 SECONDS (11.7-14.9)
[2019-11-08 18:07] LABS: ALB/GLOB Ratio 0.6 RATIO (0.9-2.4); AST(SGOT) 32 U/L (15-37); Alanine Aminotransfer ALT/SGPT 30 U/L (16-61); Albumin, Serum 3.1 g/dL (3.2-5.0); Alkaline Phosphatase 121 U/L (45-117); Anion Gap 5 (5-15); BUN 53 mg/dL (7-18); BUN/Creat Ratio 22.2 RATIO (10-20); Calcium,Total 8.3 mg/dL (8.5-10.1); Chloride 111 mmol/L (98-107); Creatinine, Serum 2.39 mg/dL (0.70-1.30); EST Glomerular Filtration Rate 28 mL/min (>60); Est Glom Filt Rate - Afr Amer 34 mL/min (>60); Estimated Creatinine Clearance 23.45 ml/min; Globulin 4.9 g/dL (2.2-4.2); Glucose 88 mg/dL (74-106); Potassium 4.8 mmol/L (3.5-5.1); Sodium Level 139 mmol/L (136-145)
[2019-11-08 18:50] VITALS: BP 105/64; BP 113/72; BP 116/75; PULSE 78; PULSE 84; PULSE 98
[2019-11-08 18:52] LABS: BNP,B-Type NATRIURETIC PEPTIDE 489.9 pg/mL (0-100)
[2019-11-08] MEDS: Ceftriaxone 1 GM/50 ML BAG IV (19:18)
--- NOTE | 2019-11-08 19:18 | PCM.HP.STD ---
Problem List (1) BROCK (dyspnea on exertion) Status: Acute (2) ROLAND (acute kidney injury) Status: Acute (3) Elevated troponin Status: Acute (4) Aortic valve replaced Status: Acute (5) Chronic kidney disease Status: Acute (6) Community acquired pneumonia Status: Inactive (7) S/P CABG x 2 Status: Chronic (8) Status post patent foramen ovale closure Status: Chronic (9) Atrial fibrillation Status: Chronic (10) CAD (coronary artery disease) Status: Chronic (11) Chronic left arterial ischemic stroke, MCA (middle cerebral artery) Status: Chronic (12) Colon cancer Status: Chronic (13) Hyperlipidemia Status: Chronic (14) Hypertension Status: Chronic (15) Hypothyroidism Status: Chronic (16) Sleep apnea Status: Chronic History of Present Illness Date of Admission: 11/08/19 Chief Complaint: vertigo The patient is a 79 year old M with a significant history of congestive heart failure; CVA; CAD status post double CABG and stents; hypertension; A. fib on Coumadin; hypothyroidism; porcine aortic valve replacement; and interstitial lung disease who presented to emergency department with 2-day history of vertigo. His vertigo occurs when he get up and when he is moving around. Because of vertigo he has to grab onto supports. Further he reports increasing shortness of breath with exertion. His shortness of breath has been going on for 2 weeks. He saw his centrifugal wax molder Dr. Caldera who reportedly thought that his x-ray was unchanged. At emergency department patient was found to have a drop in his hemoglobin. Emergent department doctor reported that rectal exams was unremarkable. However occult stool blood was positive. Patient reports that part of his stool is black and part is maroon. Of note patient is on iron supplementation. At the emergency department patient was found to have elevation in his creatinine. Also BNP was elevated and INR was elevated. Patient was found to have right bundle branch block which is chronic. His QTC was elevated. Past Medical History Past Medical History (Chronic Problems): Chronic Problems Status post patent foramen ovale closure (Chronic) Chronic left arterial ischemic stroke, MCA (middle cerebral artery) (Chronic) Hypothyroidism (Chronic) Hyperlipidemia (Chronic) CAD (coronary artery disease) (Chronic) Colon cancer (Chronic) Atrial fibrillation (Chronic) Hypertension (Chronic) S/P CABG x 2 (Chronic) Sleep apnea (Chronic) Allergies No Known Allergies Allergy (Verified 04/16/18 20:44) Home Medications: Ambulatory Orders Medication Instructions Recorded Acetaminophen [Tylenol] 650 mg PO PRN PRN 01/17/16 Multivitamin [Daily Multiple 1 tab PO DAILY 01/17/16 Vitamin] Gabapentin [Neurontin] 300 mg PO DAILY #30 capsule 02/08/16 Iron Polysaccharide Complex 150 mg PO DAILYCM #30 capsule 02/08/16 [Ferrex 150] Aspirin [Aspirin, Baby] 81 mg PO DAILY@0800 04/16/18 Levothyroxine [Synthroid] 137 mcg PO DAILY 04/16/18 Warfarin [Coumadin] 5 mg PO [id number] 04/16/18 Albuterol Aerosols [Ventolin 2.5 mg INHALATION Q2H PRN PRN #90 04/18/18 Aerosols] vial.neb. Ipratropium/Albuterol Sulfate 3 ml INHALATION Q6H.RT #90 04/18/18 [Duoneb] ampul.neb Furosemide [Lasix] 20 mg PO BID 11/08/19 Labetalol HCl 25 mg PO DAILY 11/08/19 Simvastatin 40 mg PO QHS 11/08/19 Tamsulosin HCl 0.4 mg PO DAILY 11/08/19 Warfarin [Coumadin ([facility])] 2.5 mg PO MO 11/08/19 Surgical History: coronary bypass surgery - x 2, - - Aortic Valve replacement, PFO closure. Psychiatric History: No pertinent psych hx Smoking Status: Current every day smoker Tobacco Use: Chew - *Family History Maternal History Items: Cancer, Dementia, Heart Disease Paternal History Items: Cancer, Dementia, Heart Disease Review of Systems Constitutional: Denies: Chills, Fever, Weight Change HEENT: Denies: Head Aches, Sinus Congestion, Sinus Drainage Cardiovascular: Denies: Chest Pain, Palpitations Respiratory: Reports: Cough - For the past 6 months, Shortness of breath upon exertion, Sputum production - For the past 6 months. Denies: Shortness of breath at rest Gastrointestinal: Denies: Abdominal Pain, Nausea, Vomiting Genitourinary: Denies: Dysuria Musculoskeletal: Denies: Joint Pain, Joint Tenderness Skin: Denies: Rash, Wounds Neurological: Reports: Incoordination, - - Stuttering (chronic). Denies: Focal weakness, Numbness, Tingling Psychiatric: Denies: Anxiety, Depression, Homicidal Ideations, Suicidal Ideations Hematologic/ Lymphatic: Denies: Easy Bruising, Easy Bleeding VTE Information - Inpt Only VTE Present on Admission: No VTE Mechan Device Prophylaxis: SCD's VTE Pharm Prophylaxis ordered?: No Patient Problems: Active and Suspected Problems BROCK (dyspnea on exertion) (Acute) ROLAND (acute kidney injury) (Acute) Elevated troponin (Acute) - Physical Exam Vitals/I&O's: Vital Signs Temp Pulse Resp BP Pulse Ox 97 F L 78 16 116/75 95 11/08/19 17:19 11/08/19 18:50 11/08/19 17:19 11/08/19 18:50 11/08/19 17:19 Oxygen Delivery Method Room Air Weight: 97.522 kg Body Mass Index (BMI) 32.6 General: Alert, Oriented x3, Cooperative HEENT: Atraumatic, Normocephalic, - - Tympanic membrane on the left was pearly. Tympanic membrane on the right could not be fully seen because of wax; part seen was pearly Neck: Supple, Trachea Midline Lungs: Clear to auscultation, Normal air movement Cardiovascular: Normal S1, Normal S2, No murmurs, Irregular Rate Abdomen: Bowel Sounds Present, Soft, Non Tender Extremities: No edema, Capillary Refill Less than 3 Seconds Skin: No rashes, No breakdown Musculoskeletal: No Tenderness to Palpation of Joints or Extremities Neurological: Cranial nerves II-XII grossly intact Psych/Mental Status: Normal Affect, Appropriate Microbiology Past 72 Hours 11/08/19 18:00 Stool Stool Occult Blood ([place]) - Final Occult Blood Positive Laboratory Results 11/08/19 17:35: WBC 5.2, RBC 2.61 L, Hgb 8.7 L, Hct 28.6 L, MCV 109.6 H, MCH 33.3 H, MCHC 30.4 L, RDW Std Deviation 62.5 H, RDW Coeff of Rob 17.2 H, Plt Count 108 L, MPV 9.3, Immature Gran % (Auto) 0.600, Neut % (Auto) 67.3, Lymph % (Auto) 15.8 L, [place] % (Auto) 13.4 H, Eos % (Auto) 2.3, Baso % (Auto) 0.6, Absolute Neuts (auto) 3.5, Absolute Lymphs (auto) 0.83, Nucleated RBC % 0.4 11/08/19 17:35: PT 39.4 H, INR 4.0 H* 11/08/19 17:35: Sodium 139, Potassium 4.8, Chloride 111 H, Carbon Dioxide 23.0, Anion Gap 5, BUN 53 H, Creatinine 2.39 H, Estim Creat Clear Calc 23.45, Est GFR (MDRD) Af Amer 34 L, Est GFR (MDRD) Non-Af 28 L, BUN/Creatinine Ratio 22.2 H, Glucose 88, Calcium 8.3 L, Total Bilirubin 0.50, AST 32, ALT 30, Alkaline Phosphatase 121 H, Troponin I 0.086 H, Total Protein 8.0, Albumin 3.1 L, Globulin 4.9 H, Albumin/Globulin Ratio 0.6 L 11/08/19 17:35: Blood Type A POSITIVE, Antibody Screen NEGATIVE 11/08/19 17:35: B-Natriuretic Peptide 489.9 H 11/08/19 18:30: Lactic Acid Pending Current Medications Doxycycline Hyclate 100 mg/ (Dextrose) 260 mls @ 250 mls/hr IV X1 ONE Stop: 11/08/19 19:45 Sodium Chloride () 250 mls @ 15 mls/hr IV .[id number] PRN PRN Reason: Saline Flush Assessment/Plan All Active Problems BROCK (dyspnea on exertion) (Acute) ROLAND (acute kidney injury) (Acute) Elevated troponin (Acute) Aortic valve replaced (Acute) Chronic kidney disease (Acute) The patient is a 79 year old M with a significant history of congestive heart failure; CVA; CAD status post double CABG and stents; hypertension; A. fib on Coumadin hypothyroidism; porcine aortic valve replacement; and interstitial lung disease; who presented to emergency department with vertigo; dyspnea on exertion; elevated BNP; elevated troponin; ROLAND on CKD. Vertigo Brain CT showed chronic changes. CTA/MRI was suggested. Will order MRI of brain. PT to work with patient on vestibular exercises. Dyspnea on exertion/elevated troponin/Elevated BNP Unlikely pneumonia since patient had no fever; white counts or chills. Patient does not look sick. Received antibiotics at the ED. Will get stress echocardiogram; regular echocardiogram. Elevated BNP could be from ROLAND and lung disease. In the setting of a positive occult blood and drop in hemoglobin will still continue aspirin because of elevated troponin. Hold warfarin. Albuterol prn continued. Scheduled DuoNeb continued. ROLAND on CKD stage IV On presentation creatinine was 2.39. BUN was 53. BUN over creatinine is 22.2 Creatinine in 2018 was within 1.36 to 1.54. Suspect dehydration from poor intake and Lasix use. Hold Lasix for now. Gentle IV hydration. Acute anemia Hemoglobin on presentation was 8.7. His hemoglobin in 2018 was 11.4-11.9. Positive occult blood of stool. Trend H&H. Hold warfarin. Continue aspirin in the setting of elevated troponin. Was given Protonix IV at the emergency department. Protonix IV continued. Check iron studies. Check vitamin B12 and folate. General surgery consult. Hold home labetalol p.o. HTN On presentation blood pressure was stable in regard to his age. Hold home p.o. labetalol because of possible GI bleed. IV labetalol PRN ordered. Trend blood pressures. History of congestive heart failure Lasix held because of ROLAND. Tobacco abuse Acute tobacco Counselled Prolonged QTC Avoid QTC prolongation drugs. Check magnesium. Atrial fibrillation Rate controlled on presentation. Coumadin held secondary to a positive occult blood and elevated INR. Neuropathy Gabapentin continued. DVT prophylaxis SCD. Inpatient E&M: [id number] Init Hosp L3
[2019-11-08 19:21] LABS: Lactic Acid 1.3 mmol/L (0.4-1.9)
[2019-11-08 19:41] VITALS: BP 121/87; PULSE 78; RESP 19; TEMP 36.4; O2SAT 97
[2019-11-08 20:01] VITALS: BP 136/77; PULSE 76; RESP 18; O2SAT 96
[2019-11-08 20:20] VITALS: BP 113/55; PULSE 73; RESP 18; TEMP 36.3; O2SAT 97
[2019-11-08 20:28] VITALS: PULSE 82
--- NOTE | 2019-11-08 20:30 | ECHOD_ITS ---
Reason For Study: Dyspnea/SOB Procedure This was a 2D Doppler, Color Flow transthoracic echocardiogram. The exam was of adequate technical quality. Exam performed portable in patient room. Left Ventricle Normal LV size. Severe concentric left ventricular hypertrophy. Left ventricular systolic function is normal. The estimated ejection fraction is 60 %. Post operative septal motion. No regional wall motion abnormalities noted. Right Ventricle Normal RV size. Normal systolic function. Atria The left atrium is moderately enlarged. The right atrium is mildly enlarged. No doppler evidence for ASD. Mitral Valve There is moderate mitral annular calcification. Extension of the mitral annular calcification onto the mitral valve leaflets. Moderate focal mitral valve calcification of the anterior leaflet. Mild mitral valve stenosis. Moderate (2+) mitral valve insufficiency. Tricuspid Valve Normal tricuspid valve. Mild to moderate (1-2+) tricuspid valve insufficiency. Right ventricular systolic pressure estimated to be 87 mmHg. Aortic Valve Stable appearing bioprosthetic aortic valve apparatus. Trivial transvalvular insufficiency of the aortic valve. Pulmonic Valve The pulmonic valve is not well visualized. Great Vessels The aortic root is not well visualized. Pericardium/Pleural No pericardial effusion. MMode/2D Measurements & Calculations LVIDd: 4.0 cm IVSd: 1.6 cm LVOT diam: 2.0 cm LVIDs: 2.2 cm LVPWd: 1.7 cm LVOT area: 3.0 cm2 FS: 45.0 % LAV(MOD-bp): 102.4 ml LA A2C-A/L_phl: 30.7 cm2 RA A4 area: 20.4 cm2 LAV(MOD-bp) Indexed: 48.6 ml/m2 LAV(MOD-sp2): 103.8 ml LAV(MOD-sp4): 103.5 ml Time Measurements MV dec time: 0.16 sec Doppler Measurements & Calculations MV E max mikey: 183.2 cm/sec MV V2 max: 199.3 cm/sec MV P1/2t max mikey: 197.4 cm/sec MV A max mikey: 37.4 cm/sec MV max P.9 mmHg MV P1/2t: 68.5 msec MV E/A: 4.9 MV V2 mean: 76.8 cm/sec MV dec slope: 844.5 cm/sec2 MV mean P.4 mmHg MVA(P1/2t): 3.2 cm2 MV V2 VTI: 38.7 cm MVA(VTI): 1.9 cm2 Ao V2 max: 200.3 cm/sec LV V1 max: 134.8 cm/sec MR max mikey: 534.8 cm/sec Ao max P.0 mmHg LV V1 max P.3 mmHg MR max P.4 mmHg Ao V2 mean: 114.2 cm/sec LV V1 mean P.9 mmHg MR mean mikey: 400.5 cm/sec Ao mean P.3 mmHg LV V1 mean: 90.6 cm/sec MR mean P.3 mmHg Ao V2 VTI: 34.1 cm LV V1 VTI: 25.0 cm MR VTI: 176.7 cm MILES(I,D): 2.2 cm2 MILES(V,D): 2.0 cm2 SV(LVOT): 74.9 ml PA V2 max: 73.8 cm/sec TR max mikey: 425.2 cm/sec TR max P.3 mmHg Interpretation Summary Left ventricular systolic function is normal. The estimated ejection fraction is 60 %. Severe concentric left ventricular hypertrophy. Post operative septal motion. The left atrium is moderately enlarged. The right atrium is mildly enlarged. There is moderate mitral annular calcification. Extension of the mitral annular calcification onto the mitral valve leaflets. Moderate focal mitral valve calcification of the anterior leaflet. Mild mitral valve stenosis. Moderate (2+) mitral valve insufficiency. Mild to moderate (1-2+) tricuspid valve insufficiency. Stable appearing bioprosthetic aortic valve apparatus. Trivial transvalvular insufficiency of the aortic valve. Right ventricular systolic pressure estimated to be 87 mmHg c/w severe pulmonary hypertension. Transmitral diastolic flow velocities suggest diastolic dysfunction (pseudonormal pattern). Ordering Physician: Darin Villalta Referring Physician: Loida Tolentino M.D. Performed By: Mario Gan RCS
[2019-11-08 20:42] VITALS: BMI 32.3; BMI 32.4
[2019-11-08] MEDS: 0.9% Normal Saline 1,000 ML 75 ML IV (22:02)
[2019-11-08] MEDS: Atorvastatin Calcium 20 MG Tablet PO (22:03)
[2019-11-08 22:05] LABS: Vitamin B12 1028 pg/mL (211-911)
[2019-11-08 22:20] LABS: Ferritin 74 ng/mL (26-388); Iron 57 ug/dL (65-175); Iron Binding Capacity,Total 419 ug/dL (250-450); Magnesium 2.4 mg/dL (1.6-2.6); PERCENT IRON SATURATION 13.6 % (15.0-55.0)
[2019-11-08 23:43] LABS: Hematocrit 27.6 % (40-54); Hemoglobin 8.4 g/dL (13.0-16.5)
[2019-11-09] VITALS (15 sets, daily range): BP systolic 103–134; BP diastolic 64–88; PULSE 62–94; RESP 18–24; TEMP 36.4–36.6; O2SAT 90–96
--- NOTE | 2019-11-09 05:55 | EKG12_ITS ---
Test Reason : AM EKG Blood Pressure : / mmHG Vent. Rate : 080 BPM Atrial Rate : 110 BPM P-R Int : 000 ms QRS Dur : 156 ms QT Int : 424 ms P-R-T Axes : 000 135 -02 degrees QTc Int : 489 ms Atrial fibrillation Right bundle branch block Abnormal ECG When compared with ECG of 08-NOV-2019 17:35, MANUAL COMPARISON REQUIRED, DATA IS UNCONFIRMED Confirmed by ELDON GALAN ([id number]), advertising editor SAMMIE WHIPPLE ([id number]) on 11/11/2019 7:40:13 AM Referred By: DR ZAMUDIO Confirmed By:ELDON GALAN
[2019-11-09] MEDS: Ipratropium/Albuterol Sulfate 3 ML AMPUL.NEB INHALATION ×3 (06:11→19:06)
[2019-11-09] MEDS: Levothyroxine 137 MCG Tablet PO (06:12)
[2019-11-09] MEDS: Aspirin 81 MG TAB.CHEW PO (06:12)
[2019-11-09 06:25] LABS: Absolute Lymphocyte Count 0.88 X10^3/uL (0.83-4.51); Absolute Neutrophil Count 3.1 X10^3/uL (2.0-7.7); Basophil# 0.02 X10^3/uL; Basophil% 0.4 % (0-1); Eosinophil# 0.17 X10^3/uL; Eosinophils% 3.6 % (0-5); Hematocrit 26.3 % (40-54); Hemoglobin 8.2 g/dL (13.0-16.5); Lymphocyte # 0.88 X10^3/ul (4.0); Lymphocyte % 18.6 % (19-41); Mean Corp Hgb Conc 31.2 g/dL (32-36); Mean Corpuscular Hgb 33.7 pg (27.0-32.0); Mean Corpuscular Volume 108.2 fL (80-94); Mean Platelet Vol. 9.8 fl (6.2-12.0); Monocyte# 0.54 X10^3/uL; Monocyte% 11.4 % (0-10); NRBC Flagged by Analyzer 0.4 % (0-5); Neutrophil % 65.6 % (47-70); Platelet Count 100 K/mm3 (150-450); RBC Distribution Width CV 16.8 % (11.6-14.6); RBC Distribution Width SD 62.5 fl (35.1-43.9); Red Blood Count 2.43 M/mm3 (4.6-6.2); White Blood Count 4.7 K/mm3 (4.4-11.0)
[2019-11-09 06:32] LABS: Prothrombin Time (Protime)PT. 40.7 SECONDS (11.7-14.9)
[2019-11-09 06:35] LABS: International Normalized Ratio 4.2
[2019-11-09 07:02] LABS: Anion Gap 4 (5-15); BUN 46 mg/dL (7-18); Chloride 114 mmol/L (98-107); EST Glomerular Filtration Rate 34 mL/min (>60); Est Glom Filt Rate - Afr Amer 41 mL/min (>60); Estimated Creatinine Clearance 28.03 ml/min; Glucose 88 mg/dL (74-106); Sodium Level 138 mmol/L (136-145)
[2019-11-09 08:05] LABS: Bedside Glucose 90 mg/dL (70-110)
[2019-11-09 08:45] LABS: Hematocrit 27.5 % (40-54); Hemoglobin 8.5 g/dL (13.0-16.5)
--- NOTE | 2019-11-09 09:10 | PCM.CONS.GEN ---
Problem List (1) Acute anemia Status: Acute (2) Melena Status: Acute Reason for Consult Date of Consultation: 11/09/19 Reason for Consultation: Acute anemia. ?GI bleed. Melena. History of Present Illness: The patient is a 79 year old M who presents to the ED with weakness and 2 week history of shortness of breath. Patient states the last 3-4 weeks he has noted dark stools. He also noted a bloody nose yesterday. Patient denies bright red blood per rectum and abdominal pain. He notes family history of colon cancer. He states his last colonoscopy was in [address] Doshi. Findings included two polyps. Ileocecal polyp was biopsied and an additional polyp was completely removed. Diverticula in the sigmoid and descending colon were also removed. Pathology demonstrated tubular adenoma x 2. Patient is also on Coumadin due to A Fib. Patient's mc kay stitcher was Dr. Dailey. Patient notes a history of a stroke approximately 3 years ago. He denies previous blood clots. His hemoglobin on arrival was 8.7, today it is 8.2. Past Medical History Past Medical History (Chronic Problems): Chronic Problems Status post patent foramen ovale closure (Chronic) Chronic left arterial ischemic stroke, MCA (middle cerebral artery) (Chronic) Hypothyroidism (Chronic) Hyperlipidemia (Chronic) CAD (coronary artery disease) (Chronic) Colon cancer (Chronic) Atrial fibrillation (Chronic) Hypertension (Chronic) S/P CABG x 2 (Chronic) Sleep apnea (Chronic) Allergies No Known Allergies Allergy (Verified 04/16/18 20:44) Home Medications: Ambulatory Orders Medication Instructions Recorded Acetaminophen [Tylenol] 650 mg PO PRN PRN 01/17/16 Multivitamin [Daily Multiple 1 tab PO DAILY 01/17/16 Vitamin] Gabapentin [Neurontin] 300 mg PO DAILY #30 capsule 02/08/16 Iron Polysaccharide Complex 150 mg PO DAILYCM #30 capsule 02/08/16 [Ferrex 150] Aspirin [Aspirin, Baby] 81 mg PO DAILY@0800 04/16/18 Levothyroxine [Synthroid] 137 mcg PO DAILY 04/16/18 Warfarin [Coumadin] 5 mg PO SUTUWETHFRSA 04/16/18 Albuterol Aerosols [Ventolin 2.5 mg INHALATION Q2H PRN PRN #90 04/18/18 Aerosols] vial.neb. Ipratropium/Albuterol Sulfate 3 ml INHALATION Q6H.RT #90 04/18/18 [Duoneb] ampul.neb Furosemide [Lasix] 20 mg PO BID 11/08/19 Labetalol HCl 25 mg PO DAILY 11/08/19 Simvastatin 40 mg PO QHS 11/08/19 Tamsulosin HCl 0.4 mg PO DAILY 11/08/19 Warfarin [Coumadin ([facility]KC)] 2.5 mg PO MO 11/08/19 Surgical History: coronary bypass surgery - x 2, - - Aortic Valve replacement, PFO closure. Psychiatric History: No pertinent psych hx Smoking Status: Current every day smoker Tobacco Use: Chew Alcohol: Occasional Drugs: None - *Family History Maternal History Items: Cancer, Dementia, Heart Disease Paternal History Items: Cancer, Dementia, Heart Disease Review of Systems Constitutional: Reports: Weakness, Fatigue. Denies: Chills, Fever, Weight Change HEENT: Denies: Head Aches, Sinus Congestion, Sinus Drainage Cardiovascular: Denies: Chest Pain, Palpitations Respiratory: Denies: Cough, Shortness of breath at rest, Sputum production Gastrointestinal: Reports: Abdominal Pain, Melena. Denies: Dyspepsia, Hematochezia, Nausea, Vomiting Genitourinary: Denies: Dysuria Musculoskeletal: Denies: Joint Pain, Joint Tenderness Skin: Denies: Rash, Wounds Neurological: Reports: Tremor Psychiatric: Denies: Anxiety, Depression, Homicidal Ideations, Suicidal Ideations Hematologic/ Lymphatic: Reports: Anemia, Easy Bruising, Easy Bleeding. Denies: Hx of blood clot Patient Problems: Active and Suspected Problems BROCK (dyspnea on exertion) (Acute) ROLAND (acute kidney injury) (Acute) Elevated troponin (Acute) Acute anemia (Acute) Melena (Acute) - Physical Exam Vitals/I&O's: Vital Signs Temp Pulse Resp BP Pulse Ox 97.6 F L 80 18 107/88 H 94 11/09/19 08:03 11/09/19 08:27 11/09/19 08:03 11/09/19 08:27 11/09/19 08:03 Oxygen Flow Rate (L/min) 2 Oxygen Delivery Method Nasal Cannula Weight: 214 lb 11.684 oz Body Mass Index (BMI) 32.3 Orthostatic Vital Signs Start: 11/09/19 08:27 Freq: q24h Status: Active Protocol: Activity Type Activity Date Activity User E-Sign Co-Sign Detail Recorded Client Recorded Date Recorded By Document 11/09/19 08:27 [place] [id number] 11/09/19 08:31 [place] 11/09/19 08:27 Orthostatic Vitals Standing -Blood Pressure (90/60-120/80) 129/64 H -Extremity Use Right Arm -Pulse Rate (60-100) 94 Sitting -Blood Pressure (90/60-120/80) 103/69 -Extremity Use Right Arm -Pulse Rate (60-100) 93 Lying -Blood Pressure (90/60-120/80) 107/88 H -Extremity Use Right Arm -Pulse Rate (60-100) 80 Intake and Output for Last 24 Hours 11/07/19 11/08/19 11/09/19 23:59 23:59 23:59 Intake Total 1718.75 / 1718.75 Balance 1718.75 / 1718.75 General: Alert, Oriented x3, Cooperative HEENT: Atraumatic, PERRLA, EOMI, Normocephalic Neck: Supple, No JVD, Negative Carotid Bruits Lungs: Clear to auscultation, Normal air movement Cardiovascular: Regular rate, No murmurs Abdomen: Bowel Sounds Present, Soft, Non Tender Extremities: No edema, Capillary Refill Less than 3 Seconds Skin: No rashes, No breakdown Musculoskeletal: No Tenderness to Palpation of Joints or Extremities Neurological: Neuro grossly intact Psych/Mental Status: Normal Affect, Appropriate Microbiology Past 72 Hours 11/08/19 18:43 Mucosa - Nasopharyngeal Influenza Types A,B Direct FA ([place]) - Final 11/08/19 18:00 Stool Stool Occult Blood ([place]) - Final Occult Blood Positive Laboratory Results 11/08/19 17:35: WBC 5.2, RBC 2.61 L, Hgb 8.7 L, Hct 28.6 L, MCV 109.6 H, MCH 33.3 H, MCHC 30.4 L, RDW Std Deviation 62.5 H, RDW Coeff of Rob 17.2 H, Plt Count 108 L, MPV 9.3, Immature Gran % (Auto) 0.600, Neut % (Auto) 67.3, Lymph % (Auto) 15.8 L, Mcminn % (Auto) 13.4 H, Eos % (Auto) 2.3, Baso % (Auto) 0.6, Absolute Neuts (auto) 3.5, Absolute Lymphs (auto) 0.83, Nucleated RBC % 0.4 11/08/19 17:35: PT 39.4 H, INR 4.0 H* 11/08/19 17:35: Sodium 139, Potassium 4.8, Chloride 111 H, Carbon Dioxide 23.0, Anion Gap 5, BUN 53 H, Creatinine 2.39 H, Estim Creat Clear Calc 23.45, Est GFR (MDRD) Af Amer 34 L, Est GFR (MDRD) Non-Af 28 L, BUN/Creatinine Ratio 22.2 H, Glucose 88, Calcium 8.3 L, Total Bilirubin 0.50, AST 32, ALT 30, Alkaline Phosphatase 121 H, Troponin I 0.086 H, Total Protein 8.0, Albumin 3.1 L, Globulin 4.9 H, Albumin/Globulin Ratio 0.6 L 11/08/19 17:35: Blood Type A POSITIVE, Antibody Screen NEGATIVE 11/08/19 17:35: B-Natriuretic Peptide 489.9 H 11/08/19 18:30: Lactic Acid 1.3 11/08/19 20:47: Magnesium 2.4, Iron 57 L, TIBC 419, Iron Saturation 13.6 L, Ferritin 74, Folate 18.50 11/08/19 20:47: Vitamin B12 1028 H 11/08/19 20:47: Troponin I 0.079 H 11/08/19 22:26: Troponin I 0.070 H 11/08/19 23:26: Hgb 8.4 L, Hct 27.6 L 11/09/19 05:14: WBC 4.7, RBC 2.43 L, Hgb 8.2 L, Hct 26.3 L, MCV 108.2 H, MCH 33.7 H, MCHC 31.2 L, RDW Std Deviation 62.5 H, RDW Coeff of Rob 16.8 H, Plt Count 100 L, MPV 9.8, Immature Gran % (Auto) 0.400, Neut % (Auto) 65.6, Lymph % (Auto) 18.6 L, Mcminn % (Auto) 11.4 H, Eos % (Auto) 3.6, Baso % (Auto) 0.4, Absolute Neuts (auto) 3.1, Absolute Lymphs (auto) 0.88, Nucleated RBC % 0.4 11/09/19 05:14: PT 40.7 H, INR 4.2 H* 11/09/19 05:14: Sodium 138, Potassium 5.0, Chloride 114 H, Carbon Dioxide 20.0 L, Anion Gap 4 L, BUN 46 H, Creatinine 2.00 H, Estim Creat Clear Calc 28.03, Est GFR (MDRD) Af Amer 41 L, Est GFR (MDRD) Non-Af 34 L, BUN/Creatinine Ratio 23.0 H, Glucose 88, Calcium 8.0 L 11/09/19 08:02: POC Glucose 90 11/09/19 08:35: Hgb 8.5 L, Hct 27.5 L Current Medications Acetaminophen (Tylenol) 650 mg PO Q6H PRN PRN PRN Reason: Pain Score 1-10/Temp > 100.7 F Albuterol Sulfate (Ventolin Aerosols) 2.5 mg INHALATION Q2H PRN PRN PRN Reason: SHORTNESS OF BREATH Albuterol/Ipratropium (Duoneb) 3 ml INHALATION Q6H.RT [facility] Last Admin: 11/09/19 06:11 Dose: 3 ml Documented by: Aspirin (Aspirin, Baby) 81 mg PO DAILY@0800 [facility] Last Admin: 11/09/19 06:12 Dose: 81 mg Documented by: Atorvastatin Calcium (Lipitor) 20 mg PO QHS [facility] Last Admin: 11/08/19 22:03 Dose: 20 mg Documented by: Gabapentin (Neurontin) 300 mg PO DAILY [facility] Glucagon () 1 mg IM .X1 PRN PRN Reason: Hypoglycemia Pantoprazole Sodium 40 mg/ (Sodium Chloride) 110 mls @ 330 mls/hr IV Q12 [facility] Sodium Chloride () 1,000 mls @ 75 mls/hr IV .[id number] [facility] Last Infusion: 11/08/19 23:59 Dose: 75 mls/hr Documented by: Sodium Chloride () 250 mls @ 15 mls/hr IV .[id number] PRN PRN Reason: Saline Flush Sodium Chloride () 250 mls @ 15 mls/hr IV .[id number] PRN PRN Reason: Additional IVPB Infusion Dextrose (Dextrose 10%-Water) 250 mls @ 999 mls/hr IV .Q16M PRN; Protocol PRN Reason: HYPOGLYCEMIA Labetalol HCl (Trandate) 10 mg IV Q4H PRN PRN PRN Reason: SBP > 160 Levothyroxine Sodium (Synthroid) 137 mcg PO DAILY@0600 [facility] Last Admin: 11/09/19 06:12 Dose: 137 mcg Documented by: Multivitamins (Multivitamin) 1 tablet PO DAILYCM [facility] Polysaccharide Iron Complex (Ferrex 150) 150 mg PO DAILYCM [facility] Sodium Chloride () 10 - 40 ml IV UD PRN PRN Reason: SALINE FLUSH Tamsulosin HCl (Flomax) 0.4 mg PO DAILY [facility] Assessment/Plan All Active Problems BROCK (dyspnea on exertion) (Acute) ROLAND (acute kidney injury) (Acute) Elevated troponin (Acute) Acute anemia (Acute) Melena (Acute) Aortic valve replaced (Acute) Chronic kidney disease (Acute) I have been consulted in conjunction with Dr. Gomez. He will independently evaluate this patient. Impression: Acute anemia. ?GI bleed. Melena Plan: I have discussed this patient with Dr. Gomez. Dr. Gomez will plan to perform an upper and lower scope on this patient tomorrow. We will advance to clear liquids today and bowel prep. Procedure details, risks and benefits have been explained to the patient. Patient has had the opportunity to ask and have questions answered. Patient verbally understands and agrees with the plan. We will continue to hold his Coumadin until after the procedure. Thank you for allowing us to participate in this patient's care. Office Visits / Consults: [id number] IP Consult L3
--- NOTE | 2019-11-09 09:15 | MRI_ITS ---
STUDY: MRI BRAIN WITHOUT CONTRAST REASON FOR EXAM: Male, 79 years old. Dizziness, vertigo TECHNIQUE: Standardized multiplanar fat and water weighted pulse sequences were obtained. COMPARISON: CT 11/08/2019 FINDINGS: There is moderate cerebral atrophy with widening of the extra-axial spaces and ventricular dilatation. There are multiple white matter hyperintensities, distributed throughout the deep white matter tracts of the cerebral hemispheres, consistent with moderate chronic white matter ischemic changes. There is no evidence for recent intracranial ischemia or other cause of cytotoxic edema on diffusion weighted imaging (DWI). Normal T2* images of the brain without demonstrated susceptibility artifact. There is no demonstrated hemosiderin stain. Chronic lacunar infarct of the left basal ganglia. Normal thalami. There is no extra-axial fluid accumulation. Normal flow voids within the major intracranial circulation suggesting patency by spin echo criteria. Normal sella turcica, pituitary gland, infundibular stalk, optic chiasm and hypothalamus. Normal tectal plate and pineal gland. Normal midbrain, peter and medulla. Normal cerebellum. Normal basal cisterns. Normal bilateral temporal bones. Normal bilateral internal auditory canals. No demonstrated orbital abnormality, within the constraints of a routine brain study. Normal visualized paranasal sinuses. Normal calvarium and skull base. Normal visualized soft tissue structures. Normal visualized upper cervical spine. MRI/Brain without Contrast IMPRESSION: Involutional changes of the brain, as described above. No acute infarct. Electronically Signed: Kp Cormier MD at 10:03 EDT Tel , Service support ,
[2019-11-09] MEDS: Multivitamins,Therapeutic Tablet 1 TABLET PO (09:56)
[2019-11-09] MEDS: Iron Polysaccharide Complex 150 MG CAPSULE PO (09:56)
[2019-11-09] MEDS: Tamsulosin HCl 0.4 MG Capsule PO (09:56)
[2019-11-09] MEDS: Gabapentin 300 MG Capsule PO (09:59)
[2019-11-09] MEDS: 0.9% Normal Saline 1,000 ML 75 ML IV (10:00)
--- NOTE | 2019-11-09 12:50 | NURSING ---
Patient's daughter called to report that patient has been taking CBD oil at home for back pain. Dose is 2 gtt under toungue BID. She suspects patient has been taking far more than recommended dose and worries that it may be connected with his elevated INR and bleeding.
--- NOTE | 2019-11-09 14:00 | CASEMGMT ---
RN CM Assessment Introduced role of RN CM to patient.? Patient is alert, oriented and able?to participate in RN CM Assessment. ?Care providers, pharmacy, and demographics verified. Presentation: Vertigo, SOB w/exertion, Stool black and part Maroon. H/o CHF, CVA, CAD s/p Dbl CABG & stents, HTN, Afib on coumadin, Porcine aortic valve replacement, hypothyroidism, interstitial lung dz. Admit Dx: Vertigo, BROCK Re-Admit: No Barriers/Issues: Patient lives alone. States does not feel weak but still dizzy when he gets up. States fine when laying in bed. States goal to return home. If Outpatient Tx recommended okay with that and preference is for [facility]. Has a Dtr Mylene that lives across the street from him whom works doing booking but schedule more flexible where she can help him if needed, another dtr Doris that lives approx 2 miles from him and works for [employer]. PCP: Loida Tolentino Specialists: Cardio- used to see Dr Gregg but since he retired he switched to a Dr with [employer] but cannot recall name. Pulm- Dr Caldera Preferred Pharmacy: [facility] Insurance: [employer] PPO Rx Benefit:?Yes ?LNOK: Dtr Doris Villareal LW/HPOA: Both on file with [facility], HPOA- Dtr Doris Villareal Living Arrangements:?Lives alone in a H, 3 steps to enter ADL?s: Independent with ambulation and ADLs Transportation: Patient drives DME: Cpap- has not used for the past year- states d/t requiring part cleaning daily- received from [facility]. Denies any other DME HHC: None SNF: None Goal: Home and does not think will have any needs but not sure d/t still dizzy when getting OOB. Okay with Outpatient PT if recommended- preference [facility]. Denies any other needs, issues, concerns, questions with DC planning at this time. Aware CM remains available for any emerging needs. DC PLAN: Home with possible Outpatient PT, otherwise no additional needs identified at this time. RUBA Mcwilliams
[2019-11-09] MEDS: Bisacodyl 5 MG Tablet 20 MG PO (14:25)
[2019-11-09] MEDS: Polyethylene Glycol 3350 BOWEL PREP PO (15:30)
[2019-11-09 16:38] LABS: Hematocrit 26.5 % (40-54); Hemoglobin 8.3 g/dL (13.0-16.5)
--- NOTE | 2019-11-09 18:10 | PN_ITS ---
Patient Problems: Active and Suspected Problems BROCK (dyspnea on exertion) (Acute) ROLAND (acute kidney injury) (Acute) Elevated troponin (Acute) Acute anemia (Acute) Melena (Acute) Subjective: Pt stating he has to use the bedpan again. Bowel prep started. He denies pain. Denies any spinning sensation but admits to more of a woozy feeling with postional changes. Has been taking CBD oil for pain and state that it is helping but per daughter his INR has been more difficult to control lately. C/O some SOB but better and satting 94% on RA Vitals/I&O's: Vital Signs Temp Pulse Resp BP Pulse Ox 97.5 F L 84 18 130/70 H 94 11/09/19 15:00 11/09/19 15:00 11/09/19 15:00 11/09/19 15:00 11/09/19 15:00 Oxygen Flow Rate (L/min) 2 Oxygen Delivery Method Room Air Weight: 97.4 kg Body Mass Index (BMI) 32.3 Orthostatic Vital Signs Start: 11/09/19 08:27 Freq: q24h Status: Active Protocol: Activity Type Activity Date Activity User E-Sign Co-Sign Detail Recorded Client Recorded Date Recorded By Document 11/09/19 08:27 WI [id number] 11/09/19 08:31 WI 11/09/19 08:27 Orthostatic Vitals Standing -Blood Pressure (90/60-120/80) 129/64 H -Extremity Use Right Arm -Pulse Rate (60-100) 94 Sitting -Blood Pressure (90/60-120/80) 103/69 -Extremity Use Right Arm -Pulse Rate (60-100) 93 Lying -Blood Pressure (90/60-120/80) 107/88 H -Extremity Use Right Arm -Pulse Rate (60-100) 80 Intake and Output for Last 24 Hours 11/07/19 11/08/19 11/09/19 23:59 23:59 23:59 Intake Total 1718.75 / 1718.75 1581.25 / 1581.25 Output Total 50 / 50 Balance 1718.75 / 1718.75 1531.25 / 1531.25 General: Alert, Oriented x3, Cooperative, No apparent distress, Well developed, Well nourished HEENT: Atraumatic, PERRLA, EOMI, Normocephalic, EAC Clear, - - mild [place] Oral: Moist Mucosa, No Gingival or Mucosal Lesions/ Ulcerations Neck: Supple, No JVD, Negative Hepatojugular Reflux, No Nodes, No Nuchal Rigidity, Trachea Midline, Thyroid Normal Size and Texture Lungs: Clear to auscultation, No rhonchi, No wheeze, No rales, Diminished Cardiovascular: Regular rate, Normal S1, Normal S2, No murmurs, No Ectopic Activity, No rub noted, - - irreg rhythm Abdomen: Bowel Sounds Present, Soft, Non Tender, Non-Distended, No Hepato- splenomegaly, Passing Flatus, Hyperactive Bowel Sounds, No hernias noted Extremities: No clubbing, No cyanosis, No edema, Capillary Refill Less than 3 Seconds Skin: No rashes, No breakdown Musculoskeletal: No Tenderness to Palpation of Joints or Extremities, No Muscle Wasting, Arthritic Changes Lymphatic: No Cervical, Supraclavicular, or Inguinal Adenopathy Neurological: Cranial nerves II-XII grossly intact, Deep Tendon Reflexes 2+/4 and Symmetrical, Neuro grossly intact Psych/Mental Status: Normal Affect, Appropriate, Alert and oriented to time, place, person, mood and affect Microbiology Past 72 Hours 11/08/19 18:43 Mucosa - Nasopharyngeal Influenza Types A,B Direct FA ([place]) - Final 11/08/19 18:00 Stool Stool Occult Blood ([place]) - Final Occult Blood Positive Laboratory Results 11/08/19 17:35: PT 39.4 H, INR 4.0 H* 11/08/19 17:35: Blood Type A POSITIVE, Antibody Screen NEGATIVE 11/08/19 17:35: B-Natriuretic Peptide 489.9 H 11/08/19 18:30: Lactic Acid 1.3 11/08/19 20:47: Magnesium 2.4, Iron 57 L, TIBC 419, Iron Saturation 13.6 L, Ferritin 74, Folate 18.50 11/08/19 20:47: Vitamin B12 1028 H 11/08/19 20:47: Troponin I 0.079 H 11/08/19 22:26: Troponin I 0.070 H 11/08/19 23:26: Hgb 8.4 L, Hct 27.6 L 11/09/19 05:14: WBC 4.7, RBC 2.43 L, Hgb 8.2 L, Hct 26.3 L, MCV 108.2 H, MCH 33.7 H, MCHC 31.2 L, RDW Std Deviation 62.5 H, RDW Coeff of Rob 16.8 H, Plt Count 100 L, MPV 9.8, Immature Gran % (Auto) 0.400, Neut % (Auto) 65.6, Lymph % (Auto) 18.6 L, Runnels % (Auto) 11.4 H, Eos % (Auto) 3.6, Baso % (Auto) 0.4, Absolute Neuts (auto) 3.1, Absolute Lymphs (auto) 0.88, Nucleated RBC % 0.4 11/09/19 05:14: PT 40.7 H, INR 4.2 H* 11/09/19 05:14: Sodium 138, Potassium 5.0, Chloride 114 H, Carbon Dioxide 20.0 L , Anion Gap 4 L, BUN 46 H, Creatinine 2.00 H, Estim Creat Clear Calc 28.03, Est GFR (MDRD) Af Amer 41 L, Est GFR (MDRD) Non-Af 34 L, BUN/Creatinine Ratio 23.0 H , Glucose 88, Calcium 8.0 L 11/09/19 08:02: POC Glucose 90 11/09/19 08:35: Hgb 8.5 L, Hct 27.5 L 11/09/19 16:31: Hgb 8.3 L, Hct 26.5 L Current Medications Acetaminophen (Tylenol) 650 mg PO Q6H PRN PRN PRN Reason: Pain Score 1-10/Temp > 100.7 F Albuterol Sulfate (Ventolin Aerosols) 2.5 mg INHALATION Q2H PRN PRN PRN Reason: SHORTNESS OF BREATH Albuterol/Ipratropium (Duoneb) 3 ml INHALATION Q6H.RT [facility] Last Admin: 11/09/19 13:14 Dose: 3 ml Documented by: Aspirin (Aspirin, Baby) 81 mg PO DAILY@0800 [facility] Last Admin: 11/09/19 06:12 Dose: 81 mg Documented by: Atorvastatin Calcium (Lipitor) 20 mg PO QHS [facility] Last Admin: 11/08/19 22:03 Dose: 20 mg Documented by: Gabapentin (Neurontin) 300 mg PO DAILY [facility] Last Admin: 11/09/19 09:59 Dose: 300 mg Documented by: Glucagon () 1 mg IM .X1 PRN PRN Reason: Hypoglycemia Pantoprazole Sodium 40 mg/ (Sodium Chloride) 110 mls @ 330 mls/hr IV Q12 [facility] Last Infusion: 11/09/19 10:45 Dose: Infused Documented by: Sodium Chloride () 1,000 mls @ 75 mls/hr IV .[id number] [facility] Last Admin: 11/09/19 10:00 Dose: 75 mls/hr Documented by: Sodium Chloride () 250 mls @ 15 mls/hr IV .[id number] PRN PRN Reason: Saline Flush Sodium Chloride () 250 mls @ 15 mls/hr IV .[id number] PRN PRN Reason: Additional IVPB Infusion Dextrose (Dextrose 10%-Water) 250 mls @ 999 mls/hr IV .Q16M PRN; Protocol PRN Reason: HYPOGLYCEMIA Labetalol HCl (Trandate) 10 mg IV Q4H PRN PRN PRN Reason: SBP > 160 Levothyroxine Sodium (Synthroid) 137 mcg PO DAILY@0600 [facility] Last Admin: 11/09/19 06:12 Dose: 137 mcg Documented by: [facility] Admin: 11/09/19 09:56 Dose: 1 tablet Documented by: Polysaccharide Iron Complex (Ferrex 150) [facility] Admin: 11/09/19 09:56 Dose: 150 mg Documented by: Sodium Chloride () 10 - 40 ml IV UD PRN PRN Reason: SALINE FLUSH Tamsulosin HCl (Flomax) 0.4 mg PO DAILY [facility] Last Admin: 11/09/19 09:56 Dose: 0.4 mg Documented by: STROKE Vital Signs/Narrative: Vital Signs Temp Pulse Resp BP Pulse Ox 11/09/19 15:00 97.5 F L 84 18 130/70 H 94 11/09/19 14:49 82 Medical Necessity - Tobacco Use Smoking Status: Current every day smoker Tobacco Use: Chew Assessment/Plan All Active Problems BROCK (dyspnea on exertion) (Acute) ROLAND (acute kidney injury) (Acute) Elevated troponin (Acute) Acute anemia (Acute) Melena (Acute) Aortic valve replaced (Acute) Chronic kidney disease (Acute) Lightheadedness -this doesn't sound like vertiginous episodes--> after d/w pt it sounds more like wooziness with positional changes -CT head neg for acute findings -MRI with no acute changes -1 episode today earlier but none since -continue IVF at 75 cc/hr for now BROCK/Mild troponin elevation -BNP elevated -troponin now down trending -Echo done and pending -sats 94% on RA and per daughter this is what he typically runs -continue nebs Acute Anemia -last hgb here were from 2018 and were in the 11 range -hemoccult is positive -EGD and c-scope tomorrow per GS -d/c q 6 hr hgb as they have been stable -hold OAC (INR elevated) -avoid nephrotoxins -hold asa -transfuse <7 -h/o colon cancer ROLAND on CKD 4 -baseline creatinine is about 1.4-1.6 -2.34 on admission and now down to 2 today -continue gentle hydration--> ghislaine with bowel prep -repeat in am HTN/Persistent A-fib/HPL/CHF -continue prn labetalol and hold home antihypertensives for now -Hold Lasix -restart statin upon d/c -rate is controlled -hold OAC Supratherapeutic INR -taking excessive CBD oil at home -known interaction with Coumadin -pt instructed to stop taking CBD -Repeat INR in am -hold OAC Hypothyroidism -continue Synthroid Neuropathy -cont gabapentin GERD -PPI BPH -Flomax DVT prophylaxis -supratherapeutic INR Code Status: FULL -daughter updated this pm Inpatient E&M: 27100 Subs Hosp L3
[2019-11-09] MEDS: Atorvastatin Calcium 20 MG Tablet PO (20:53)
[2019-11-10] VITALS (20 sets, daily range): BP systolic 97–137; BP diastolic 65–79; PULSE 88–114; RESP 18–36; TEMP 36.4–36.9; O2SAT 92–100; BMI 32.8
[2019-11-10] MEDS: 0.9% Normal Saline 1,000 ML 75 ML IV (00:12)
--- NOTE | 2019-11-10 02:45 | NURSING ---
PT ASKS TO NOT BE WOKEN UP UNTIL MORNING MEDS.
--- NOTE | 2019-11-10 05:55 | EKG12_ITS ---
Test Reason : AM EKG Blood Pressure : / mmHG Vent. Rate : 102 BPM Atrial Rate : 122 BPM P-R Int : 000 ms QRS Dur : 154 ms QT Int : 392 ms P-R-T Axes : 000 148 -02 degrees QTc Int : 510 ms Atrial fibrillation Right bundle branch block Left posterior fascicular block Bifascicular block Abnormal ECG When compared with ECG of 09-NOV-2019 05:59, MANUAL COMPARISON REQUIRED, DATA IS UNCONFIRMED Confirmed by ELDON GALAN ([id number]), editor sound SAMMIE WHIPPLE ([id number]) on 11/11/2019 7:29:32 AM Referred By: CRIS Confirmed By:ELDON GALAN
[2019-11-10 06:53] LABS: Absolute Lymphocyte Count 0.64 X10^3/uL (0.83-4.51); Absolute Neutrophil Count 4.2 X10^3/uL (2.0-7.7); Basophil# 0.02 X10^3/uL; Basophil% 0.4 % (0-1); Eosinophil# 0.09 X10^3/uL; Eosinophils% 1.6 % (0-5); Hematocrit 27.3 % (40-54); Hemoglobin 8.2 g/dL (13.0-16.5); Lymphocyte # 0.64 X10^3/ul (4.0); Lymphocyte % 11.7 % (19-41); Mean Corpuscular Hgb 33.3 pg (27.0-32.0); Mean Platelet Vol. 9.9 fl (6.2-12.0); Monocyte# 0.52 X10^3/uL; Monocyte% 9.5 % (0-10); NRBC Flagged by Analyzer 0 % (0-5); Neutrophil # 4.16 X10^3/uL (2.7-7.7); Neutrophil % 76.3 % (47-70); POSITIVE MORPHOLOGY YES; Platelet Count 103 K/mm3 (150-450); RBC Distribution Width CV 17.1 % (11.6-14.6); RBC Distribution Width SD 67.4 fl (35.1-43.9); Red Blood Count 2.46 M/mm3 (4.6-6.2); White Blood Count 5.5 K/mm3 (4.4-11.0)
[2019-11-10 06:55] LABS: Differential Indicated SCAN CRITERIA MET
[2019-11-10 07:05] LABS: International Normalized Ratio 3.1; Prothrombin Time (Protime)PT. 32.3 SECONDS (11.7-14.9)
[2019-11-10] MEDS: Ipratropium/Albuterol Sulfate 3 ML AMPUL.NEB INHALATION ×3 (07:14→20:04)
[2019-11-10 07:16] LABS: Anion Gap 6 (5-15); BUN 29 mg/dL (7-18); Calcium,Total 7.9 mg/dL (8.5-10.1); Chloride 115 mmol/L (98-107); Creatinine, Serum 1.81 mg/dL (0.70-1.30); EST Glomerular Filtration Rate 38 mL/min (>60); Est Glom Filt Rate - Afr Amer 46 mL/min (>60); Estimated Creatinine Clearance 30.97 ml/min; Glucose 97 mg/dL (74-106); Potassium 4.8 mmol/L (3.5-5.1); Sodium Level 139 mmol/L (136-145)
[2019-11-10 07:20] LABS: Differential Comment SCANNED
[2019-11-10 07:21] LABS: Anisocytosis 2+; Hypochromasia 1+; Microcytosis 1+; Platelet Estimate MOD DEC (ADEQ)
[2019-11-10 07:42] LABS: Thyroid Stim Hormone (TSH) 1.92 uIU/mL (0.358-3.74)
--- NOTE | 2019-11-10 11:33 | NURSING ---
1100-pt assisted with urinal and down to surgery for endo proceedures via bed with chart and accompanied by daughter
--- NOTE | 2019-11-10 12:00 | EGD_PTH ---
PATIENT: FERNANDA MACARIO LOC: [facility] U#:[id number] AGE/SX: 79/M ROOM: [facility] RE11/08/[address]: Dr. David Brandon DO : 1940 BED: 1 DIS: 11/12/2019 SPEC #: [id number] RECD: 11/10/19 12:57 STATUS: ZAIRA RERoss #: [id number] BIJAL: 11/10/19 12:[address]: Migel Gomez DEPT: SURGICAL PATHOLOGY RECD BY: Philipp Gong ENTERED: 11/10/19 13:05 SP TYPE: EGD BIOPSY [facility] DR: MD Dr. Marizol Deshpande DO Dr. Liza D Talampas, MD Tissues: A - Gastric mucous membrane B - Sigmoid colon biopsy Procedures: Surgery Specimen Level IV HEADER OPERATION: Colonoscopy, EGD ([facility] PRE-OP DIAGNOSIS: Anemia, melena TISSUE SUBMITTED: A - Antral biopsy for H. pylori and pathology, B - Sigmoid polyp MICROSCOPIC DIAGNOSIS A. Gastric antrum, biopsy: Minimal chronic inflammation. B. Sigmoid colon polyp, biopsy: Tubular adenoma. Fecal debris. AM:zohreh 11/11/19 COMMENT A. The results of immunohistochemistry for Helicobacter pylori will be reported separately ([id number]). MICROSCOPIC DESCRIPTION Slides are reviewed. GROSS DESCRIPTION A -Received in fixative is one container labeled with the patient's name and designated antral biopsy. The specimen consists of one irregular fragment of light lizarraga soft tissue that measures 0.3 x 0.3 x 0.1 cm. The specimen is totally submitted in one cassette. B - Received in fixative is one container labeled with the patient's name and designated sigmoid polyp. The specimen consists of multiple irregular fragments of light lizarraga soft tissue mixed with fecal material that in aggregate measure 1.5 x 0.5 x 0.1 cm. The specimen is totally submitted in one cassette. / SJ:zohreh 11/10/19 TC:3 CPT: 34335 x2
--- NOTE | 2019-11-10 12:00 | IMM_PTH ---
PATIENT: FERNANDA MACARIO LOC: [facility] U#:[id number] AGE/SX: 79/M ROOM: [facility] RE11/08/[address]: Dr. David Brandon DO : 1940 BED: 1 DIS: 11/12/2019 SPEC #: [id number] RECD: 11/10/19 13:29 STATUS: SOUDaljit REQ #: [id number] BIJAL: 11/10/19 12:[address]: Migel Gomez DEPT: IMMUNOHISTOCHEMISTRY RECD BY: Fariba Pierson ENTERED: 11/10/19 13:29 SP TYPE: IMMUNO OTHR DR: MD Dr. Marizol Deshpande DO Dr. Liza D Talampas, MD Tissues: A - Stomach, NOS Procedures: H Pylori (initial) PHYSICIAN & INSTITUTION [place] [phone] SPECIMEN INFORMATION: Tissue Source: A - Antral biopsy Clinical Info: Anemia, melena Specimen Number: [id number] CPT code: 50162 METHODOLOGY: Deparaffinized sections of prefer/formalin-fixed tissue or PAP/DQ stained slides are incubated with monoclonal/polyclonal antibodies/oligonucleotide probes. Localization is made via biotin free immunoperoxidase method. Appropriate controls are performed and reacted as expected. Results on target cell population are indicated in the following table: RESULTS: ANTIBODY / CLONE RESULT Block A H Pylori (polyclonal) negative These tests were developed and their performance characteristics determined by [facility]. They may not have been cleared or approved by the U.S. Food and Drug Administration. The FDA has determined that such clearance or approval is not necessary. The above immunohistochemical/dualISH markers are ordered and reviewed by the Pathologist. INTERPRETATION: A. Antral biopsy: Negative for Helicobacter pylori organisms. AM:zohreh 11/11/19
--- NOTE | 2019-11-10 12:16 | OP.EGD_ITS ---
Patient Name: Sean Villareal Procedure Date: 11/10/2019 11:11 AM Date of : 1940 Age: 79 Procedure: Upper GI endoscopy Indications: Iron deficiency anemia secondary to chronic blood loss Providers: Migel Gomez MD Medicines: See the Anesthesia note for documentation of the administered medications Patient Profile: This is an 79 year old male. Refer to note in patient chart for documentation of history and physical. Complications: No immediate complications. Procedure: Pre-Anesthesia Assessment: - Prior to the procedure, a History and Physical was performed, and patient medications and allergies were reviewed. The patient's tolerance of previous anesthesia was also reviewed. The risks and benefits of the procedure and the sedation options and risks were discussed with the patient. All questions were answered, and informed consent was obtained. Prior Anticoagulants: The patient has taken no previous anticoagulant or antiplatelet agents. ASA Grade Assessment: II - A patient with mild systemic disease. After reviewing the risks and benefits, the patient was deemed in satisfactory condition to undergo the procedure. After obtaining informed consent, the endoscope was passed under direct vision. Throughout the procedure, the patient's blood pressure, pulse, and oxygen saturations were monitored continuously. The gastroscope was introduced through the mouth, and advanced to the second part of duodenum. The upper GI endoscopy was accomplished without difficulty. The patient tolerated the procedure well. Scope In: 11:46:53 AM Scope Out: 11:49:40 AM Total Procedure Duration Time 0 hours 2 minutes 47 seconds Findings: The examined esophagus was normal. Localized mildly erythematous mucosa without bleeding was found in the prepyloric region of the stomach. Biopsies were taken with a cold forceps for Helicobacter pylori testing. Diffuse moderate inflammation characterized by erythema, friability, granularity and shallow ulcerations was found in the duodenal bulb. No biopsies or other specimens were collected for this exam. Impression: - Normal esophagus. - Erythematous mucosa in the prepyloric region of the stomach. Biopsied. - Mucosal changes suspicious for duodenitis. No specimens collected. Recommendation: - Discharge patient to home. - Resume previous diet. - Use Prilosec (omeprazole) 40 mg PO daily indefinitely. - Continue present medications. Procedure Code(s): --- Professional --- 21293, Esophagogastroduodenoscopy, flexible, transoral; with biopsy, single or multiple Diagnosis Code(s): --- Professional --- K31.89, Other diseases of stomach and duodenum D50.0, Iron deficiency anemia secondary to blood loss (chronic) CPT copyright 2017 [employer]. All rights reserved. The codes documented in this report are preliminary and upon retaining room cutter review may be revised to meet current compliance requirements. MD Migel Valdez MD 11/10/2019 12:16:10 PM This report has been signed electronically. Number of Addenda: 0 Note Initiated On: 11/10/2019 11:11 AM
--- NOTE | 2019-11-10 12:16 | OP.CCLET_ITS ---
11/10/2019 Loida Tolentino [address] [place] [address] Re : Upper GI endoscopy procedure for Sean Villareal Dear Dr. Tolentino This procedure was performed on Sunday, November 10, 2019. My impressions and recommendations are as follows: Impressions : - Normal esophagus. - Erythematous mucosa in the prepyloric region of the stomach. Biopsied. - Mucosal changes suspicious for duodenitis. No specimens collected. Recommendations : - Discharge patient to home. - Resume previous diet. - Use Prilosec (omeprazole) 40 mg PO daily indefinitely. - Continue present medications. My findings are described in the full procedure note, which is enclosed. If I can be of further assistance, please feel free to contact me at Doctor phone number(s): , Fax: [phone], Work: . Sincerely, MD Migel Valdez MD 11/10/2019 12:16:10 PM This report has been signed electronically.
--- NOTE | 2019-11-10 12:18 | OP.COLON_ITS ---
Patient Name: Sean Villareal Procedure Date: 11/10/2019 11:50 AM Date of : 1940 Age: 79 Procedure: Colonoscopy Indications: Melena, Iron deficiency anemia secondary to chronic blood loss Providers: Migel Gomez MD Medicines: See the Anesthesia note for documentation of the administered medications Patient Profile: This is an 79 year old male. Refer to note in patient chart for documentation of history and physical. Last Colonoscopy: more than 10 years ago. Complications: No immediate complications. Procedure: Pre-Anesthesia Assessment: - Prior to the procedure, a History and Physical was performed, and patient medications and allergies were reviewed. The patient's tolerance of previous anesthesia was also reviewed. The risks and benefits of the procedure and the sedation options and risks were discussed with the patient. All questions were answered, and informed consent was obtained. Prior Anticoagulants: The patient has taken no previous anticoagulant or antiplatelet agents. ASA Grade Assessment: II - A patient with mild systemic disease. After reviewing the risks and benefits, the patient was deemed in satisfactory condition to undergo the procedure. After I obtained informed consent, the scope was passed under direct vision. Throughout the procedure, the patient's blood pressure, pulse, and oxygen saturations were monitored continuously. The colonoscope was introduced through the anus and advanced to the cecum, identified by appendiceal orifice and ileocecal valve. The colonoscopy was performed without difficulty. The patient tolerated the procedure well. The quality of the bowel preparation was adequate to identify polyps 6 mm and larger in size. Scope In: 11:52:10 AM Scope Withdrawal Time 0 hours 8 minutes 23 seconds Scope Out: 12:04:34 PM Total Procedure Duration Time 0 hours 12 minutes 24 seconds Findings: Multiple small-mouthed diverticula were found in the sigmoid colon and descending colon. No biopsies or other specimens were collected for this exam. A 5 mm polyp was found in the sigmoid colon. The polyp was sessile. The polyp was removed with a hot snare. Resection and retrieval were complete. The exam was otherwise without abnormality. Impression: - Diverticulosis in the sigmoid colon and in the descending colon. No specimens collected. - One 5 mm polyp in the sigmoid colon, removed with a hot snare. Resected and retrieved. - The examination was otherwise normal. Recommendation: - Discharge patient to home. - Resume previous diet. - Continue present medications. - Await pathology results. - Repeat colonoscopy in 5 years for surveillance based on pathology results. - Return to GI office in 1 week. Procedure Code(s): --- Professional --- 77210, Colonoscopy, flexible; with removal of tumor(s), polyp(s), or other lesion(s) by snare technique Diagnosis Code(s): --- Professional --- D12.5, Benign neoplasm of sigmoid colon K92.1, Melena (includes Hematochezia) D50.0, Iron deficiency anemia secondary to blood loss (chronic) K57.30, Diverticulosis of large intestine without perforation or abscess without bleeding CPT copyright 2017 [employer]. All rights reserved. The codes documented in this report are preliminary and upon client support associate review may be revised to meet current compliance requirements. MD Migel Valdez MD 11/10/2019 12:18:05 PM This report has been signed electronically. Number of Addenda: 0 Note Initiated On: 11/10/2019 11:50 AM
--- NOTE | 2019-11-10 12:18 | OP.CCLET_ITS ---
11/10/2019 Loida Tolentino [address] [place] [address] Re : Colonoscopy procedure for Sean Villareal Dear Dr. Tolentino This procedure was performed on Sunday, November 10, 2019. My impressions and recommendations are as follows: Impressions : - Diverticulosis in the sigmoid colon and in the descending colon. No specimens collected. - One 5 mm polyp in the sigmoid colon, removed with a hot snare. Resected and retrieved. - The examination was otherwise normal. Recommendations : - Discharge patient to home. - Resume previous diet. - Continue present medications. - Await pathology results. - Repeat colonoscopy in 5 years for surveillance based on pathology results. - Return to GI office in 1 week. My findings are described in the full procedure note, which is enclosed. If I can be of further assistance, please feel free to contact me at Doctor phone number(s): , Fax: [phone], Work: . Sincerely, MD Migel Valdez MD 11/10/2019 12:18:05 PM This report has been signed electronically.
[2019-11-10] MEDS: Multivitamins,Therapeutic Tablet 1 TABLET PO (15:08)
[2019-11-10] MEDS: Aspirin 81 MG TAB.CHEW PO (15:09)
[2019-11-10] MEDS: Iron Polysaccharide Complex 150 MG CAPSULE PO (15:09)
[2019-11-10] MEDS: Tamsulosin HCl 0.4 MG Capsule PO (15:09)
--- NOTE | 2019-11-10 15:14 | PCM.PN.HOSP ---
Patient Problems: Active and Suspected Problems BROCK (dyspnea on exertion) (Acute) ROLAND (acute kidney injury) (Acute) Elevated troponin (Acute) Acute anemia (Acute) Melena (Acute) Subjective: Pt states that he is doing ok. No wooziness today. Ambulated to BR door today and back with PT. Happy to be allowed to eat now. Vitals/I&O's: Vital Signs Temp Pulse Resp BP Pulse Ox 98.1 F 92 18 136/79 H 100 11/10/19 12:46 11/10/19 12:46 11/10/19 12:46 11/10/19 12:46 11/10/19 12:46 Oxygen Flow Rate (L/min) 2 Oxygen Delivery Method Nasal Cannula Weight: 98 kg Body Mass Index (BMI) 32.8 Orthostatic Vital Signs Start: 11/09/19 08:27 Freq: q24h Status: Active Protocol: Activity Type Activity Date Activity User E-Sign Co-Sign Detail Recorded Client Recorded Date Recorded By Document 11/10/19 05:52 [facility] [id number] 11/10/19 06:09 LF 11/10/19 05:52 Orthostatic Vitals Standing -Blood Pressure (90/60-120/80) 119/67 -Extremity Use Right Arm -Pulse Rate (60-100) 114 H Sitting -Blood Pressure (90/60-120/80) 112/68 -Extremity Use Right Arm -Pulse Rate (60-100) 112 H Lying -Blood Pressure (90/60-120/80) 137/72 H -Extremity Use Right Arm -Pulse Rate (60-100) 89 Intake and Output for Last 24 Hours 11/08/19 11/09/19 11/10/19 23:59 23:59 23:59 Intake Total 1718.75 / 1718.75 1911.25 / 4411.25 3610 / 3610 Output Total 50 / 350 400 / 400 Balance 1718.75 / 1718.75 1861.25 / 4061.25 3210 / 3210 General: Alert, Oriented x3, Cooperative, No apparent distress, Well developed, Well nourished, - - sitting up eating snack, daughter at bedside HEENT: Atraumatic, PERRLA, EOMI, Normocephalic, EAC Clear Oral: Moist Mucosa, No Gingival or Mucosal Lesions/ Ulcerations Neck: Supple, No JVD, Negative Hepatojugular Reflux, No Nodes, No Nuchal Rigidity, Trachea Midline, Thyroid Normal Size and Texture Lungs: Wheezes - ant that cleared with cough and upper airway end exp wheeze Cardiovascular: Regular rate, Regular Rhythm, Normal S1, Normal S2, No murmurs, No Ectopic Activity, No rub noted, No Gallop, - Abdomen: Bowel Sounds Present, Soft, Non Tender, Non-Distended, No Hepato-splenomegaly, Passing Flatus, No hernias noted Extremities: No clubbing, No cyanosis, No edema, Capillary Refill Less than 3 Seconds Skin: No rashes, No breakdown Musculoskeletal: No Tenderness to Palpation of Joints or Extremities, No Muscle Wasting, Arthritic Changes Lymphatic: No Cervical, Supraclavicular, or Inguinal Adenopathy Neurological: Cranial nerves II-XII grossly intact, Neuro grossly intact Psych/Mental Status: Normal Affect, Appropriate, Alert and oriented to time, place, person, mood and affect Microbiology Past 72 Hours 11/08/19 18:43 Mucosa - Nasopharyngeal Influenza Types A,B Direct FA ([place]) - Final 11/08/19 18:00 Stool Stool Occult Blood ([place]) - Final Occult Blood Positive Laboratory Results 11/09/19 16:31: Hgb 8.3 L, Hct 26.5 L 11/10/19 06:20: PT 32.3 H, INR 3.1 11/10/19 06:20: WBC 5.5, RBC 2.46 L, Hgb 8.2 L, Hct 27.3 L, MCV 111.0 H, MCH 33.3 H, MCHC 30.0 L, RDW Std Deviation 67.4 H, RDW Coeff of Rob 17.1 H, Plt Count 103 L, MPV 9.9, Immature Gran % (Auto) 0.500, Neut % (Auto) 76.3 H, Lymph % (Auto) 11.7 L, [place] % (Auto) 9.5, Eos % (Auto) 1.6, Baso % (Auto) 0.4, Absolute Neuts (auto) 4.2, Absolute Lymphs (auto) 0.64 L, Nucleated RBC % 0, Differential Comment SCANNED, Platelet Estimate MOD DEC, Hypochromasia 1+, Anisocytosis 2+, Microcytosis 1+ 03/11/20 06:20: Sodium 139, Potassium 4.8, Chloride 115 H, Carbon Dioxide 18.0 L, Anion Gap 6, BUN 29 H, Creatinine 1.81 H, Estim Creat Clear Calc 30.97, Est GFR (MDRD) Af Amer 46 L, Est GFR (MDRD) Non-Af 38 L, BUN/Creatinine Ratio 16.0, Glucose 97, Calcium 7.9 L 11/10/19 06:20: TSH 1.92 Current Medications Acetaminophen (Tylenol) 650 mg PO Q6H PRN PRN PRN Reason: Pain Score 1-10/Temp > 100.7 F Albuterol Sulfate (Ventolin Aerosols) 2.5 mg INHALATION Q2H PRN PRN PRN Reason: SHORTNESS OF BREATH Albuterol/Ipratropium (Duoneb) 3 ml INHALATION Q6H.RT [facility] Last Admin: 11/10/19 13:05 Dose: 3 ml Documented by: Aspirin (Aspirin, Baby) 81 mg PO DAILY@0800 [facility] Last Admin: 11/10/19 15:09 Dose: 81 mg Documented by: Atorvastatin Calcium (Lipitor) 20 mg PO QHS [facility] Last Admin: 11/09/19 20:53 Dose: 20 mg Documented by: Gabapentin (Neurontin) 300 mg PO DAILY [facility] Last Admin: 11/10/19 15:10 Dose: Not Given Documented by: Glucagon () 1 mg IM .X1 PRN PRN Reason: Hypoglycemia Pantoprazole Sodium 40 mg/ (Sodium Chloride) 110 mls @ 330 mls/hr IV Q12 [facility] Last Infusion: 11/10/19 09:37 Dose: Infused Documented by: Sodium Chloride () 1,000 mls @ 75 mls/hr IV .[id number] [facility] Last Admin: 11/10/19 00:12 Dose: 75 mls/hr Documented by: Sodium Chloride () 250 mls @ 15 mls/hr IV .[id number] PRN PRN Reason: Saline Flush Sodium Chloride () 250 mls @ 15 mls/hr IV .[id number] PRN PRN Reason: Additional IVPB Infusion Dextrose (Dextrose 10%-Water) 250 mls @ 999 mls/hr IV .Q16M PRN; Protocol PRN Reason: HYPOGLYCEMIA Labetalol HCl (Trandate) 10 mg IV Q4H PRN PRN PRN Reason: SBP > 160 Levothyroxine Sodium (Synthroid) 137 mcg PO DAILY@0600 [facility] Last Admin: 11/10/19 05:02 Dose: Not Given Documented by: [facility]it[facility]) [facility] Last Admin: 11/10/19 15:08 Dose: 1 tablet Documented by: Polysaccharide Iron Complex (Ferrex 150) 150 mg PO DAILYCM [facility] Last Admin: 11/10/19 15:09 Dose: 150 mg Documented by: Sodium Chloride () 10 - 40 ml IV UD PRN PRN Reason: SALINE FLUSH Tamsulosin HCl (Flomax) 0.4 mg PO DAILY [facility] Last Admin: 11/10/19 15:09 Dose: 0.4 mg Documented by: STROKE Vital Signs/Narrative: Vital Signs Temp Pulse Resp BP Pulse Ox 11/10/19 12:46 98.1 F 92 18 136/79 H 100 11/10/19 12:36 97.6 F L 88 22 H 121/74 H 100 11/10/19 12:30 98 24 H 132/72 H 99 11/10/19 12:25 92 26 H 97/73 98 11/10/19 12:20 101 H 36 H 113/70 95 11/10/19 12:15 97.6 F L 102 H 36 H 111/66 95 Medical Necessity - Tobacco Use Smoking Status: Current every day smoker Tobacco Use: Chew Assessment/Plan All Active Problems BROCK (dyspnea on exertion) (Acute) ROLAND (acute kidney injury) (Acute) Elevated troponin (Acute) Acute anemia (Acute) Melena (Acute) Aortic valve replaced (Acute) Chronic kidney disease (Acute) Lightheadedness -this doesn't sound like vertiginous episodes--> after d/w pt it sounds more like wooziness with positional changes -CT head neg for acute findings -MRI with no acute changes -no further episodes -D/C IVF -continue PT BROCK/Mild troponin elevation -BNP elevated -troponin was up slightly but trended down -Echo shows nml EF (60%) with severe concentric LVH, TOBI, diastolic dysfunction -sats 94% on RA and per daughter this is what he typically runs -continue nebs -no WMA on ECHO Acute Anemia -last hgb here were from 2018 and were in the 11 range -EGD and c-scope done 3/11 -EGD showed some erythema of the prepyloric region of the stomach and some suspected duodenitis (bx done) -C-scope showed diverticulosis of the descending colon and 1 5 mm polyp in the sigmoid colon -Hgb remains stable -would recommend capsule endoscopy as outpt if hgb remains low -hold OAC (INR elevated) again today -avoid nephrotoxins -restart ASA -transfuse <7 -h/o colon cancer ROLAND on CKD 4 -baseline creatinine is about 1.4-1.6 -2.34 on admission and now down to 1.81 today -d/c IVF today but still hold diuretic -repeat in am HTN/Persistent A-fib/HPL/CHF -continue prn labetalol and hold home antihypertensives for now -Hold Lasix -restart statin upon d/c -rate is controlled -hold OAC Supratherapeutic INR -taking excessive CBD oil at home -known interaction with Coumadin -pt instructed to stop taking CBD -Repeat INR in am -hold OAC Hypothyroidism -continue Synthroid Neuropathy -cont gabapentin GERD -PPI BPH -Flomax DVT prophylaxis -supratherapeutic INR Code Status: FULL Dispo -POC discussed with daughter--> she would like to see him d/c on Friday if remains stable
[2019-11-10] MEDS: Atorvastatin Calcium 20 MG Tablet PO (21:12)
[2019-11-11] VITALS (16 sets, daily range): BP systolic 113–153; BP diastolic 51–75; PULSE 93–143; RESP 13–28; TEMP 36.4–36.8; O2SAT 96–98
[2019-11-11] MEDS: Ipratropium/Albuterol Sulfate 3 ML AMPUL.NEB INHALATION ×3 (02:35→19:30)
[2019-11-11] MEDS: Metoprolol Tartrate 5 MG/5 ML Vial IV (04:12)
[2019-11-11] MEDS: 0.9% Saline Lock 10 ML Syringe IV ×3 (04:12→17:53)
[2019-11-11] MEDS: Levothyroxine 137 MCG Tablet PO (05:46)
[2019-11-11 06:16] LABS: Absolute Lymphocyte Count 0.47 X10^3/uL (0.83-4.51); Absolute Neutrophil Count 4.4 X10^3/uL (2.0-7.7); Basophil# 0.02 X10^3/uL; Basophil% 0.4 % (0-1); Eosinophil# 0.08 X10^3/uL; Eosinophils% 1.5 % (0-5); Lymphocyte # 0.47 X10^3/ul (4.0); Lymphocyte % 8.6 % (19-41); Mean Corp Hgb Conc 30.8 g/dL (32-36); Mean Corpuscular Hgb 33.9 pg (27.0-32.0); Mean Corpuscular Volume 110.2 fL (80-94); Mean Platelet Vol. 9.8 fl (6.2-12.0); Monocyte% 9.2 % (0-10); NRBC Flagged by Analyzer 0.4 % (0-5); Neutrophil # 4.36 X10^3/uL (2.7-7.7); Neutrophil % 79.9 % (47-70); POSITIVE COUNT YES; POSITIVE DIFFERENTIAL YES; POSITIVE MORPHOLOGY YES; Platelet Count 99 K/mm3 (150-450); RBC Distribution Width SD 67.7 fl (35.1-43.9); Red Blood Count 2.36 M/mm3 (4.6-6.2); White Blood Count 5.5 K/mm3 (4.4-11.0)
[2019-11-11 06:19] LABS: Differential Indicated SCAN CRITERIA MET
[2019-11-11 06:23] LABS: International Normalized Ratio 2.4; Prothrombin Time (Protime)PT. 26.4 SECONDS (11.7-14.9)
[2019-11-11 06:35] LABS: Differential Comment SCANNED; Platelet Estimate MOD DEC (ADEQ)
[2019-11-11 06:36] LABS: Anisocytosis 1+; Hypochromasia RARE; Microcytosis RARE; Polychromasia RARE
[2019-11-11 06:43] LABS: Anion Gap 6 (5-15); BUN 24 mg/dL (7-18); BUN/Creat Ratio 14.4 RATIO (10-20); Chloride 114 mmol/L (98-107); Creatinine, Serum 1.67 mg/dL (0.70-1.30); EST Glomerular Filtration Rate 42 mL/min (>60); Est Glom Filt Rate - Afr Amer 51 mL/min (>60); Estimated Creatinine Clearance 33.56 ml/min; Glucose 114 mg/dL (74-106); Potassium 4.9 mmol/L (3.5-5.1); Sodium Level 138 mmol/L (136-145)
[2019-11-11] MEDS: Multivitamins,Therapeutic Tablet 1 TABLET PO (08:27)
[2019-11-11] MEDS: Gabapentin 300 MG Capsule PO (08:27)
[2019-11-11] MEDS: Iron Polysaccharide Complex 150 MG CAPSULE PO (08:27)
[2019-11-11] MEDS: Tamsulosin HCl 0.4 MG Capsule PO (08:27)
[2019-11-11] MEDS: Metoprolol(XL)Succ 25 MG Tablet PO (08:30)
--- NOTE | 2019-11-11 09:41 | NURSING ---
spoke with pt's daughter and informed of need of isolation and testing
--- NOTE | 2019-11-11 09:53 | RAD_ITS ---
STUDY: X-RAY CHEST REASON FOR EXAM: Male, 79 years old. Increase SOB -- infiltrates TECHNIQUE: Single AP portable view of the chest. COMPARISON: Comparison is made with prior study dated November 08, 2019. FINDINGS: EKG electrodes are seen. Stable appearance of the increased interstitial markings with areas of confluence in both lungs worse on the left side. This may represent mild degree of CHF superimposed on chronic scarring. Blunting of both costophrenic angles. Sternal cerclage wires and vascular clips are present from a prior sternotomy and coronary artery bypass graft procedure (CABG). Normal mediastinum and yovany. Normal visualized pulmonary arteries. There is atherosclerotic calcification of the aortic arch with tortuosity. Normal visualized thoracic spine. There is degenerative osteoarthritis of the bilateral shoulders. There is no demonstrated abnormality of the visualized soft tissue structures of the upper abdomen. RAD/Chest 1 View (Portable) IMPRESSION: Stable examination. Electronically Signed: John Mancilla, at 11:08 EDT , Service support ,
[2019-11-11] MEDS: Pantoprazole Sodium 40 MG Tablet PO ×2 (11:46→21:52)
[2019-11-11] MEDS: Aspirin 81 MG TAB.CHEW PO (11:47)
[2019-11-11] MEDS: Furosemide 40 MG/4 ML Vial IV ×2 (13:16→17:52)
--- NOTE | 2019-11-11 16:16 | PCM.PROGNOTE ---
Patient Problems: Active and Suspected Problems BROCK (dyspnea on exertion) (Acute) ROLAND (acute kidney injury) (Acute) Elevated troponin (Acute) Acute anemia (Acute) Melena (Acute) Subjective: Patient was seen and examined today, he had expiratory wheezes on examination this morning, patient's pulse ox was 98% on 2 L, subsequently nursing has been able to wean the oxygen down to 1 L at the present time. According to nursing, patient expectorated mucus this afternoon, this morning I ordered a respiratory panel on him which was negative for tested pathogens. I made the decision to start the patient back on Lasix, his Lasix had been held since he was admitted and the patient's beta natruretic peptide today was elevated. I will restart the patient's Coumadin today. - Physical Exam Vitals/I&O's: Vital Signs Temp Pulse Resp BP Pulse Ox 97.8 F 93 13 129/74 H 98 11/11/19 15:24 11/11/19 15:24 11/11/19 15:24 11/11/19 15:24 11/11/19 15:45 Oxygen Flow Rate (L/min) 1 Oxygen Delivery Method Nasal Cannula Weight: 101.3 kg Body Mass Index (BMI) 32.8 Orthostatic Vital Signs Start: 11/09/19 08:27 Freq: q24h Status: Active Protocol: Activity Type Activity Date Activity User E-Sign Co-Sign Detail Recorded Client Recorded Date Recorded By Document 11/11/19 05:47 LMS [id number] 11/11/19 05:55 LMS 11/11/19 05:47 Orthostatic Vitals Standing -Blood Pressure (90/60-120/80) 117/60 -Extremity Use Right Arm -Pulse Rate (60-100) 127 H Sitting -Blood Pressure (90/60-120/80) 113/51 L -Extremity Use Right Arm -Pulse Rate (60-100) 127 H Lying -Blood Pressure (90/60-120/80) 118/62 -Extremity Use Right Arm -Pulse Rate (60-100) 115 H Intake and Output for Last 24 Hours 11/09/19 11/10/19 11/11/19 23:59 23:59 23:59 Intake Total 1911.25 / 4411.25 5020 / 5020 240 / 240 Output Total 50 / 350 900 / 1200 550 / 550 Balance 1861.25 / 4061.25 4120 / 3820 -310 / -310 General: Alert, Oriented x3, Cooperative, No apparent distress, Well developed HEENT: Atraumatic, PERRLA, EOMI, Normocephalic Oral: Moist Mucosa Neck: Supple, No JVD, Trachea Midline, Thyroid Normal Size and Texture Lungs: Clear to auscultation, Normal air movement, No rhonchi, No rales, Wheezes - expiratory wheezes were noted bilaterally Cardiovascular: No murmurs, PMI Normal, Irregular Rate, No rub noted Abdomen: Bowel Sounds Present, Soft, Non Tender, Non-Distended, No hernias noted Extremities: No clubbing, No cyanosis, No edema, Capillary Refill Less than 3 Seconds Skin: No rashes, No breakdown Musculoskeletal: No Tenderness to Palpation of Joints or Extremities Neurological: Cranial nerves II-XII grossly intact, Neuro grossly intact, Sensory exam intact to light touch and pain, Coordination normal Psych/Mental Status: Normal Affect, Appropriate, Alert and oriented to time, place, person, mood and affect Microbiology Past 72 Hours 11/11/19 10:45 Mucosa - Nasopharyngeal Respiratory Panel (PCR) - Final 11/08/19 18:30 Blood Culture (Wb) - Anticubital Right Blood Culture - Preliminary No growth in 48 hours. 11/08/19 18:40 Blood Culture (Wb) - Anticubital Left Blood Culture - Preliminary No growth in 48 hours. 11/08/19 18:43 Mucosa - Nasopharyngeal Influenza Types A,B Direct FA ([place]) - Final 11/08/19 18:00 Stool Stool Occult Blood ([place]) - Final Occult Blood Positive Laboratory Results 11/11/19 06:04: PT 26.4 H, INR 2.4 11/11/19 06:04: WBC 5.5, RBC 2.36 L, Hgb 8.0 L, Hct 26.0 L, MCV 110.2 H, MCH 33.9 H, MCHC 30.8 L, RDW Std Deviation 67.7 H, RDW Coeff of Rob 17.0 H, Plt Count 99 L, MPV 9.8, Immature Gran % (Auto) 0.400, Neut % (Auto) 79.9 H, Lymph % (Auto) 8.6 L, [place] % (Auto) 9.2, Eos % (Auto) 1.5, Baso % (Auto) 0.4, Absolute Neuts (auto) 4.4, Absolute Lymphs (auto) 0.47 L, Nucleated RBC % 0.4, Differential Comment SCANNED, Platelet Estimate MOD DEC, Polychromasia RARE, Hypochromasia RARE, Anisocytosis 1+, Microcytosis RARE 11/11/19 06:04: Sodium 138, Potassium 4.9, Chloride 114 H, Carbon Dioxide 18.0 L, Anion Gap 6, BUN 24 H, Creatinine 1.67 H, Estim Creat Clear Calc 33.56, Est GFR (MDRD) Af Amer 51 L, Est GFR (MDRD) Non-Af 42 L, BUN/Creatinine Ratio 14.4, Glucose 114 H, Calcium 8.0 L 11/11/19 06:04: B-Natriuretic Peptide 334.0 H Current Medications Acetaminophen (Tylenol) 650 mg PO Q6H PRN PRN PRN Reason: Pain Score 1-10/Temp > 100.7 F Albuterol Sulfate (Ventolin Aerosols) 2.5 mg INHALATION Q2H PRN PRN PRN Reason: SHORTNESS OF BREATH Albuterol/Ipratropium (Duoneb) 3 ml INHALATION Q6H.RT [facility] Last Admin: 11/11/19 13:35 Dose: Not Given Documented by: Aspirin (Aspirin, Baby) 81 mg PO DAILY@0800 [facility] Last Admin: 11/11/19 11:47 Dose: 81 mg Documented by: Atorvastatin Calcium (Lipitor) 20 mg PO QHS [facility] Last Admin: 11/10/19 21:12 Dose: 20 mg Documented by: Furosemide (Lasix) 40 mg IV BID@1000,1800 [facility] Last Admin: 11/11/19 13:16 Dose: 40 mg Documented by: Gabapentin (Neurontin) 300 mg PO DAILY [facility] Last Admin: 11/11/19 08:27 Dose: 300 mg Documented by: Glucagon () 1 mg IM .X1 PRN PRN Reason: Hypoglycemia Sodium Chloride () 250 mls @ 15 mls/hr IV .[id number] PRN PRN Reason: Saline Flush Sodium Chloride () 250 mls @ 15 mls/hr IV .[id number] PRN PRN Reason: Additional IVPB Infusion Dextrose (Dextrose 10%-Water) 250 mls @ 999 mls/hr IV .Q16M PRN; Protocol PRN Reason: HYPOGLYCEMIA Labetalol HCl (Trandate) 10 mg IV Q4H PRN PRN PRN Reason: SBP > 160 Levothyroxine Sodium (Synthroid) 137 mcg PO DAILY@0600 [facility] Last Admin: 11/11/19 05:46 Dose: 137 mcg Documented by: Metoprolol Succinate (Toprol Xl (Beta Nini)) 25 mg PO DAILY [facility] Last Admin: 11/11/19 08:30 Dose: 25 mg Documented by: Multivitamins (Multivitamin) 1 tablet PO DAILYCM [facility] Last Admin: 11/11/19 08:27 Dose: 1 tablet Documented by: Pantoprazole Sodium (Protonix) 40 mg PO BID [facility] Last Admin: 11/11/19 11:46 Dose: 40 mg Documented by: Polysaccharide Iron Complex (Ferrex 150) 150 mg PO DAILYCM [facility] Last Admin: 11/11/19 08:27 Dose: 150 mg Documented by: Sodium Chloride () 10 - 40 ml IV UD PRN PRN Reason: SALINE FLUSH Last Admin: 11/11/19 13:16 Dose: 10 ml Documented by: Tamsulosin HCl (Flomax) 0.4 mg PO DAILY [facility] Last Admin: 11/11/19 08:27 Dose: 0.4 mg Documented by: Medical Necessity - Tobacco Use Smoking Status: Current every day smoker Tobacco Use: Chew Assessment/Plan All Active Problems BROCK (dyspnea on exertion) (Acute) ROLAND (acute kidney injury) (Acute) Elevated troponin (Acute) Acute anemia (Acute) Melena (Acute) Aortic valve replaced (Acute) Chronic kidney disease (Acute) #1 acute diastolic congestive heart failure-patient's echocardiogram showed preserved EF at 60%, he did have severe pulmonary hypertension however, I will place the patient back on every 12 hr Lasix and recheck BMP tomorrow. #2 acute on chronic iron deficiency anemia-patient will receive Venofer #3 essential hypertension #4 chronic atrial fibrillation-patient's Coumadin will be restarted #5 elevated troponin-etiology unclear #6 Vertigo-resolved at this time #7 acute kidney injury on chronic kidney disease stage III-I believe the patient would benefit from starting his Lasix back up again, I have elected to place patient on IV Lasix and recheck his BMP tomorrow #8 pulmonary hypertension-this appears severe #9 coronary artery disease #10 hypothyroidism Inpatient E&M: [id number] Subs Hosp L2
[2019-11-11] MEDS: Atorvastatin Calcium 20 MG Tablet PO (21:52)
[2019-11-12] VITALS (11 sets, daily range): BP systolic 107–116; BP diastolic 50–60; PULSE 81–105; RESP 16–20; TEMP 36.6–36.8; O2SAT 84–98
[2019-11-12] MEDS: Ipratropium/Albuterol Sulfate 3 ML AMPUL.NEB INHALATION ×3 (01:00→13:22)
[2019-11-12] MEDS: Levothyroxine 137 MCG Tablet PO (05:10)
[2019-11-12 06:59] LABS: International Normalized Ratio 1.8; Prothrombin Time (Protime)PT. 20.5 SECONDS (11.7-14.9)
[2019-11-12 07:12] LABS: Anion Gap 5 (5-15); BUN 29 mg/dL (7-18); Calcium,Total 8.1 mg/dL (8.5-10.1); Chloride 114 mmol/L (98-107); Creatinine, Serum 1.93 mg/dL (0.70-1.30); EST Glomerular Filtration Rate 36 mL/min (>60); Est Glom Filt Rate - Afr Amer 43 mL/min (>60); Estimated Creatinine Clearance 29.04 ml/min; Glucose 95 mg/dL (74-106); Potassium 4.7 mmol/L (3.5-5.1); Sodium Level 140 mmol/L (136-145)
[2019-11-12] MEDS: Aspirin 81 MG TAB.CHEW PO (08:01)
[2019-11-12] MEDS: Iron Polysaccharide Complex 150 MG CAPSULE PO (08:01)
[2019-11-12] MEDS: Multivitamins,Therapeutic Tablet 1 TABLET PO (08:01)
[2019-11-12] MEDS: Acetaminophen 325 MG Tablet 650 MG PO (08:03)
[2019-11-12] MEDS: Tamsulosin HCl 0.4 MG Capsule PO (09:54)
[2019-11-12] MEDS: Gabapentin 300 MG Capsule PO (09:54)
[2019-11-12] MEDS: Metoprolol(XL)Succ 25 MG Tablet PO (09:54)
[2019-11-12] MEDS: Furosemide 40 MG/4 ML Vial IV (09:54)
[2019-11-12] MEDS: Pantoprazole Sodium 40 MG Tablet PO (09:54)
[2019-11-12] MEDS: 0.9% Saline Lock 10 ML Syringe IV (09:55)
--- NOTE | 2019-11-12 10:19 | CT_ITS ---
STUDY: CT CHEST WITHOUT CONTRAST REASON FOR EXAM: Male, 79 years old. HYPOXIA. Hx of CABG x 2. RADIATION DOSAGE (If Supplied By Facility): CTDIvol = ( 16.65 ) mGy, DLP = ( 565.71 ) mGycm TECHNIQUE: Transaxial imaging was performed without the administration of intravenous contrast material. Multiplanar coronal and sagittal images were reformatted. Individualized dose optimization techniques were used for this CT. COMPARISON: None. FINDINGS: There is evidence of increased interstitial markings throughout both lungs worse at the lung bases with evidence of a subpleural blebs in keeping with honeycombing. There is also evidence of a traction bronchiectasis and scarring in the lingular segment of the left upper lobe. This is superimposed on small bilateral effusions worse on the left side with the bibasilar atelectasis/early infiltrates. Sternal cerclage wires and vascular clips are present from a prior sternotomy and coronary artery bypass graft procedure (CABG). There are calcifications of the coronary arteries. Multiple mediastinal lymph nodes the largest measuring 2.6 cm. Calcified bilateral hilar lymph nodes. Normal unenhanced pulmonary arteries. There is atherosclerotic calcification of the aortic arch and origins of the major vessels with tortuosity and elongation of the aortic arch and descending thoracic aorta. There are multi-level degenerative changes of the thoracic spine. There is no demonstrated abnormality of the visualized upper abdomen. CT/Chest without Contrast IMPRESSION: Findings in keeping with the interstitial scarring worse in the lower lobes with a superimposed small bilateral effusions and bibasilar atelectasis versus infiltrates at the lung bases. Electronically Signed: John Mancilla, at 10:59 EDT , Service support ,
--- NOTE | 2019-11-12 12:57 | PCM.CONS.PUL ---
Reason for Consult Date of Consultation: 11/12/19 Reason for Consultation: Respiratory failure, wheezes History of Present Illness: The patient is an 79-year-old male, with a history as outlined below, who initially presented to the emergency department on November 07 with complaints of dizziness and shortness of breath. The patient has a questionable history of COPD and is currently followed by Dr. Caldera at [facility]. History pertinent to his hospitalization was relatively limited from the patient himself, as he appears to be a relatively poor historian. On presentation to the emergency department, the patient was noted to be afebrile and hemodynamically stable. Initial laboratory evaluation revealed no evidence of an elevated white blood cell count. The patient was anemic with a hemoglobin of 8.7 g/dL. INR was supratherapeutic at 4.0. Creatinine was elevated to 2.39. Troponin was increased to 0.086 with an elevated BNP to 489. Initial plain film chest x-ray revealed bilateral pulmonary infiltrates. The patient was subsequently admitted to the progressive care unit and evaluated by general surgery. He underwent upper and lower endoscopy. Of note, the patient has been afebrile throughout his hospital course and without evidence of leukocytosis. Surface echocardiogram obtained during this hospital admission revealed intact systolic function with an ejection fraction of 60%. There was evidence of biatrial enlargement along with a right ventricular systolic pressure estimated to be 87 mmHg. A noncontrasted chest CT obtained today did reveal evidence of interstitial lung disease in the bases bilaterally with traction bronchiectasis and bilateral pleural effusions. The patient does appear to be on p.o. Lasix 20 mg twice daily as an outpatient. Past Medical History Past Medical History (Chronic Problems): Chronic Problems Status post patent foramen ovale closure (Chronic) Chronic left arterial ischemic stroke, MCA (middle cerebral artery) (Chronic) Chronic kidney disease (Chronic) Hypothyroidism (Chronic) Hyperlipidemia (Chronic) CAD (coronary artery disease) (Chronic) Colon cancer (Chronic) Atrial fibrillation (Chronic) Hypertension (Chronic) S/P CABG x 2 (Chronic) Sleep apnea (Chronic) Allergies No Known Allergies Allergy (Verified 04/16/18 20:44) Home Medications: Ambulatory Orders Medication Instructions Recorded Acetaminophen [Tylenol] 650 mg PO PRN PRN 01/17/16 Multivitamin [Daily Multiple 1 tab PO DAILY 01/17/16 Vitamin] Gabapentin [Neurontin] 300 mg PO DAILY #30 capsule 02/08/16 Aspirin [Aspirin, Baby] 81 mg PO DAILY@0800 04/16/18 Levothyroxine [Synthroid] 137 mcg PO DAILY 04/16/18 Albuterol Aerosols [Ventolin 2.5 mg INHALATION Q2H PRN PRN #90 04/18/18 Aerosols] vial.neb. Simvastatin 40 mg PO QHS 11/08/19 Tamsulosin HCl 0.4 mg PO DAILY 11/08/19 Metoprolol Succinate [Toprol Xl] 25 mg PO DAILY 11/10/19 Furosemide [Lasix] 40 mg PO UD #45 tab 11/12/19 Iron Polysaccharide Complex 150 mg PO BID #60 cap 11/12/19 [Ferrex 150] Warfarin [Coumadin] 4 mg PO DAILY #1 tab 11/12/19 Surgical History: coronary bypass surgery - x 2, - - Aortic Valve replacement, PFO closure. Psychiatric History: No pertinent psych hx Smoking Status: Current every day smoker Tobacco Use: Chew Alcohol: Occasional Drugs: None - *Family History Maternal History Items: Cancer, Dementia, Heart Disease Paternal History Items: Cancer, Dementia, Heart Disease Review of Systems Constitutional: Denies: Chills, Fever Eyes: Denies: Blurred vision, Double vision HEENT: Denies: Head Aches, Sinus Congestion, Sinus Drainage Cardiovascular: Denies: Chest Pain, Palpitations Respiratory: Reports: Cough, Shortness of Breath, Wheezing Gastrointestinal: Denies: Abdominal Pain, Nausea, Vomiting Genitourinary: Denies: Dysuria Musculoskeletal: Denies: Joint Pain, Joint Tenderness Skin: Denies: Rash, Wounds Neurological: Denies: Numbness, Tingling, Focal weakness Psychiatric: Denies: Anxiety, Depression, Homicidal Ideations, Suicidal Ideations Hematologic/ Lymphatic: Reports: Anemia, Hx of blood transfusion Patient Problems: Active and Suspected Problems BROCK (dyspnea on exertion) (Acute) ROLAND (acute kidney injury) (Acute) Elevated troponin (Acute) Acute anemia (Acute) Melena (Acute) Objective: The patient's most recent lab work, culture data and imaging studies have all been personally reviewed. - Physical Exam Vitals/I&O's: Vital Signs Temp Pulse Resp BP Pulse Ox 98.2 F 94 18 110/60 89 11/12/19 09:49 11/12/19 09:54 11/12/19 09:49 11/12/19 09:49 11/12/19 09:49 Oxygen Flow Rate (L/min) [ 3 AMBULATION with Oxygen] Oxygen Flow Rate (L/min) 2 Oxygen Delivery Method Nasal Cannula Weight: 215 lb 9.793 oz Body Mass Index (BMI) 32.8 Orthostatic Vital Signs Start: 11/09/19 08:27 Freq: q24h Status: Active Protocol: Activity Type Activity Date Activity User E-Sign Co-Sign Detail Recorded Client Recorded Date Recorded By Document 11/12/19 03:30 MAB [id number] 11/12/19 04:03 MAB 11/12/19 03:30 Orthostatic Vitals Standing -Blood Pressure (90/60-120/80) 112/53 L -Extremity Use Right Arm -Pulse Rate (60-100) 105 H Sitting -Blood Pressure (90/60-120/80) 107/50 L -Extremity Use Right Arm -Pulse Rate (60-100) 102 H Lying -Blood Pressure (90/60-120/80) 115/59 L -Extremity Use Right Arm -Pulse Rate (60-100) 92 Intake and Output for Last 24 Hours 11/10/19 11/11/19 11/12/19 23:59 23:59 23:59 Intake Total 5020 / 5020 950 / 950 220 / 220 Output Total 900 / 1200 2740 / 2740 300 / 300 Balance 4120 / 3820 -1790 / -1790 -80 / -80 General: Alert, Cooperative HEENT: Atraumatic, Normocephalic Oral: Moist Mucosa Neck: Supple, No Nodes, Trachea Midline Lungs: Diminished, Rales, Wheezes - Mild and expiratory wheeze on left Cardiovascular: Normal S1, Normal S2, Irregular Rate Abdomen: Bowel Sounds Present, Soft, Non Tender Extremities: No clubbing, No cyanosis, No edema Skin: No breakdown Musculoskeletal: No Tenderness to Palpation of Joints or Extremities Lymphatic: No Cervical, Supraclavicular, or Inguinal Adenopathy Neurological: Neuro grossly intact Psych/Mental Status: Flat Affect Labs (Last 48 Hours) 11/11/19 11/11/19 11/11/19 06:04 06:04 06:04 WBC 5.5 RBC 2.36 L Hgb 8.0 L Hct 26.0 L MCV 110.2 H MCH 33.9 H MCHC 30.8 L RDW Std Deviation 67.7 H RDW Coeff of Rob 17.0 H Plt Count 99 L MPV 9.8 Immature Gran % (Auto) 0.400 Neut % (Auto) 79.9 H Lymph % (Auto) 8.6 L Davison % (Auto) 9.2 Eos % (Auto) 1.5 Baso % (Auto) 0.4 Absolute Neuts (auto) 4.4 Absolute Lymphs (auto) 0.47 L Nucleated RBC % 0.4 Differential Comment SCANNED Platelet Estimate MOD DEC Polychromasia RARE Hypochromasia RARE Anisocytosis 1+ Microcytosis RARE PT 26.4 H INR 2.4 Sodium 138 Potassium 4.9 Chloride 114 H Carbon Dioxide 18.0 L Anion Gap 6 BUN 24 H Creatinine 1.67 H Estim Creat Clear Calc 33.56 Est GFR (MDRD) Af Amer 51 L Est GFR (MDRD) Non-Af 42 L BUN/Creatinine Ratio 14.4 Glucose 114 H Calcium 8.0 L B-Natriuretic Peptide 11/11/19 11/12/19 11/12/19 06:04 06:20 06:20 WBC RBC Hgb Hct MCV MCH MCHC RDW Std Deviation RDW Coeff of Rob Plt Count MPV Immature Gran % (Auto) Neut % (Auto) Lymph % (Auto) Davison % (Auto) Eos % (Auto) Baso % (Auto) Absolute Neuts (auto) Absolute Lymphs (auto) Nucleated RBC % Differential Comment Platelet Estimate Polychromasia Hypochromasia Anisocytosis Microcytosis PT 20.5 H INR 1.8 Sodium 140 Potassium 4.7 Chloride 114 H Carbon Dioxide 21.0 Anion Gap 5 BUN 29 H Creatinine 1.93 H Estim Creat Clear Calc 29.04 Est GFR (MDRD) Af Amer 43 L Est GFR (MDRD) Non-Af 36 L BUN/Creatinine Ratio 15.0 Glucose 95 Calcium 8.1 L B-Natriuretic Peptide 334.0 H Microbiology 11/11/19 10:45 Mucosa - Nasopharyngeal Respiratory Panel (PCR) - Final 11/08/19 18:30 Blood Culture (Wb) - Anticubital Right Blood Culture - Preliminary No growth in 48 hours. 11/08/19 18:40 Blood Culture (Wb) - Anticubital Left Blood Culture - Preliminary No growth in 48 hours. Clinical Impression(s) from Imaging Studies Brain CT 11/08/19 17:32 IMPRESSION: No evidence of acute intracranial bleed. Prominent chronic ischemic and atrophic changes with left subinsular encephalomalacia, likely chronic. If continued clinical concern for acute on chronic disease, CTA/MRI is suggested. Electronically Signed: Riaz Tabitha, at 18:53 EDT Tel , Service support , Chest X-Ray 11/08/19 17:40 IMPRESSION: Moderate bilateral patchy pulmonary infiltrates. Electronically Signed: Riaz Lu, at 18:09 EDT Tel , Service support , Brain MRI 11/09/19 09:15 IMPRESSION: Involutional changes of the brain, as described above. No acute infarct. Electronically Signed: Kp Cormier MD at 10:03 EDT Tel , Service support , Chest X-Ray 11/11/19 09:53 IMPRESSION: Stable examination. Electronically Signed: John Mancilla, at 11:08 EDT , Service support , Chest CT 11/12/19 10:19 IMPRESSION: Findings in keeping with the interstitial scarring worse in the lower lobes with a superimposed small bilateral effusions and bibasilar atelectasis versus infiltrates at the lung bases. Electronically Signed: John Mancilla, at 10:59 EDT , Service support , Current Medications Acetaminophen (Tylenol) 650 mg PO Q6H PRN PRN PRN Reason: Pain Score 1-10/Temp > 100.7 F Last Admin: 11/12/19 08:03 Dose: 650 mg Documented by: Albuterol Sulfate (Ventolin Aerosols) 2.5 mg INHALATION Q2H PRN PRN PRN Reason: SHORTNESS OF BREATH Albuterol/Ipratropium (Duoneb) 3 ml INHALATION Q6H.RT [facility] Last Admin: 11/12/19 07:27 Dose: 3 ml Documented by: Aspirin (Aspirin, Baby) 81 mg PO DAILY@0800 [facility] Last Admin: 11/12/19 08:01 Dose: 81 mg Documented by: Atorvastatin Calcium (Lipitor) 20 mg PO QHS [facility] Last Admin: 11/11/19 21:52 Dose: 20 mg Documented by: Furosemide (Lasix) 40 mg IV BID@1000,1800 [facility] Gabapentin (Neurontin) 300 mg PO DAILY [facility] Last Admin: 11/12/19 09:54 Dose: 300 mg Documented by: Glucagon () 1 mg IM .X1 PRN PRN Reason: Hypoglycemia Sodium Chloride () 250 mls @ 15 mls/hr IV .[id number] PRN PRN Reason: Saline Flush Sodium Chloride () 250 mls @ 15 mls/hr IV .[id number] PRN PRN Reason: Additional IVPB Infusion Dextrose (Dextrose 10%-Water) 250 mls @ 999 mls/hr IV .Q16M PRN; Protocol PRN Reason: HYPOGLYCEMIA Iron Sucrose 200 mg/ Sodium (Chloride) 110 mls @ 220 mls/hr IV X1 ONE Stop: 11/12/19 13:21 Labetalol HCl (Trandate) 10 mg IV Q4H PRN PRN PRN Reason: SBP > 160 Levothyroxine Sodium (Synthroid) 137 mcg PO DAILY@0600 [facility] Last Admin: 11/12/19 05:10 Dose: 137 mcg Documented by: Metoprolol Succinate (Toprol Xl (Beta Nini)) 25 mg PO DAILY [facility] Last Admin: 11/12/19 09:54 Dose: 25 mg Documented by: [facility] Admin: 11/12/19 08:01 Dose: 1 tablet Documented by: Pantoprazole Sodium (Protonix) 40 mg PO BID [facility] Last Admin: 11/12/19 09:54 Dose: 40 mg Documented by: Polysaccharide Iron Complex (Ferrex 150) [facility] Last Admin: 11/12/19 08:01 Dose: 150 mg Documented by: Sodium Chloride () 10 - 40 ml IV UD PRN PRN Reason: SALINE FLUSH Last Admin: 11/12/19 09:55 Dose: 10 ml Documented by: Tamsulosin HCl (Flomax) 0.4 mg PO DAILY [facility] Last Admin: 11/12/19 09:54 Dose: 0.4 mg Documented by: Warfarin Sodium (Coumadin (Pbkc)) 2.5 mg PO DAILY@1700 [facility] Last Admin: 11/11/19 17:55 Dose: 2.5 mg Documented by: Assessment/Plan All Active Problems BROCK (dyspnea on exertion) (Acute) ROLAND (acute kidney injury) (Acute) Elevated troponin (Acute) Acute anemia (Acute) Melena (Acute) Aortic valve replaced (Acute) RECOMMENDATIONS: 1. Resume Lasix as ordered. 2. Encourage incentive spirometer use and mobilize patient as tolerated. 3. Wean supplemental oxygen to maintain saturations at or above 90%. 4. Perform walking oximetry study prior to consideration for discharge home. 5. Recommend secondary pulmonary hypertension work-up as an outpatient. I will defer this to the patient's primary lens edger. IMPRESSIONS: 1. Acute hypoxemic respiratory insufficiency Presumed secondary to decompensated heart failure with preserved ejection fraction in the setting of rather severe pulmonary hypertension and what appears to be interstitial lung disease of unclear chronicity. I agree with continuing Lasix as ordered. The patient should have a secondary work-up performed for his pulmonary hypertension on an outpatient basis. I will defer this work-up to his primary lens edger at [facility]. In the interim, recommend weaning supplemental oxygen to maintain saturations at or above 90%. Encourage incentive spirometer use and mobilize patient as tolerated. 2. Anemia Status post work-up with upper and lower endoscopy. Hemoglobin is stable. Transfuse if hemoglobin drops below 7 g/dL. 3. Persistent atrial fibrillation/heart failure with preserved ejection fraction/pulmonary hypertension Resume Lasix as ordered. Continue Coumadin. This note was generated with [employer] dictation software. It may contain incorrect words, spelling, and punctuation that were not noted in checking the note before signing. Inpatient E&M: 11603 Init Hosp L3
--- NOTE | 2019-11-12 13:26 | CASEMGMT ---
Pt does qualify for home oxygen at this time and is agreeable to [facility] as they are preferred provider for his [facility] at this time. Referral faxed to [facility] at this time. Pt declines the need for any further therapy at this time. Pt is A/Ox4 at this time. Pt voices no further questions/concerns/needs at this time. Kassi CARDONA CM
--- NOTE | 2019-11-12 13:34 | CPS ---
Pt dropped to 88% after 15 min on room air. Pt placed back on 2 lpm
--- NOTE | 2019-11-12 13:35 | PCM.DC ---
- Discharge Diagnoses Current Active Problems: Current Active and Chronic Problems BROCK (dyspnea on exertion) (Acute) ROLAND (acute kidney injury) (Acute) Elevated troponin (Acute) Acute anemia (Acute) Melena (Acute) You will use the following diet at home:: No restrictions Your food should be the consistency of: Regular Your liquids should be the consistency of: Regular/Thin Discharge Activity: Return to Normal Activity Weight Bearing Status: Full weight bearing Additional Instructions: wear oxygen at 2 liters at all times Allergies/Adverse Reactions: Allergies No Known Allergies Allergy (Verified 04/16/18 20:44) Medications to take at Discharge Acetaminophen [Tylenol] 650 mg PO PRN PRN 01/17/16 Multivitamin [Daily Multiple Vitamin] 1 tab PO DAILY 01/17/16 Gabapentin [Neurontin] 300 mg PO DAILY #30 capsule 02/08/16 Aspirin [Aspirin, Baby] 81 mg PO DAILY@0800 04/16/18 Levothyroxine [Synthroid] 137 mcg PO DAILY 04/16/18 Albuterol Aerosols [Ventolin Aerosols] 2.5 mg INHALATION Q2H PRN PRN #90 vial.neb. 04/18/18 Simvastatin 40 mg PO QHS 11/08/19 Tamsulosin HCl 0.4 mg PO DAILY 11/08/19 Metoprolol Succinate [Toprol Xl] 25 mg PO DAILY 11/10/19 Furosemide [Lasix] 40 mg PO UD #45 tab 11/12/19 Iron Polysaccharide Complex [Ferrex 150] 150 mg PO BID #60 capsule 11/12/19 Warfarin [Coumadin] 4 mg PO DAILY #1 tablet 11/12/19 The following prescriptions were given: Warfarin [Coumadin] 4 mg PO DAILY #1 tablet Iron Polysaccharide Complex [Ferrex 150] 150 mg PO BID #60 capsule Furosemide [Lasix] 40 mg PO UD #45 tab Transmission Status: Pending to [facility] Primary Care Physician: Loida Tolentino MD [Primary Care Provider] - Test Results: Test results from this visit will be discussed in further detail at your follow-up appointment, if applicable. Please Follow Up With: Darci Caldera MD When: next week, get BMP rechecked as well as INR
[2019-11-12] MEDS: Lactulose 20 GM/30 ML UDC PO (13:37)
[2019-11-12] MEDS: Bisacodyl 5 MG Tablet 10 MG PO (13:37)
--- NOTE | 2019-11-12 13:38 | PCM.HOSP.N ---
Hospitalist Note Patient's pulse ox on room air ambulating was 87%, at rest on room air it was 88%. Ambulating with 3 liters oxygen, pulse ox was 90%. Patient will require 3 liters oxygen for use at home and outside his home. He will be expected to use it when ambulating and at rest.
--- NOTE | 2019-11-14 16:15 | PCM.DC.SUM ---
Discharge Date and Diagnosis Date of Admission: 11/08/19 Date of Discharge: 11/12/19 - Primary Discharge Diagnosis #1 acute diastolic congestive heart failure #2 chronic iron deficiency anemia-etiology unclear #3 essential hypertension #4 chronic atrial fibrillation #5 elevated troponin-etiology unclear #6 Benign vertigo #7 acute kidney injury on chronic kidney disease stage III #8 pulmonary hypertension- severe #9 coronary artery disease #10 hypothyroidism #11 probable duodenitis #12 diverticulosis #13 small colon polyp #14 supratherapeutic INR secondary to Coumadin usage - Secondary Discharge Diagnosis Chronic Problems Status post patent foramen ovale closure (Chronic) Chronic left arterial ischemic stroke, MCA (middle cerebral artery) (Chronic) Chronic kidney disease (Chronic) Hypothyroidism (Chronic) Hyperlipidemia (Chronic) CAD (coronary artery disease) (Chronic) Colon cancer (Chronic) Atrial fibrillation (Chronic) Hypertension (Chronic) S/P CABG x 2 (Chronic) Sleep apnea (Chronic) Hospital Course and Treatment Operations: None Procedures: None Summary of Care Provided: The patient is a 79 year old M was seen in the emergency room at [facility] with a chief complaint of dizziness and lightheadedness. Work-up in the emergency room included an EKG which showed atrial fibrillation which was a chronic rhythm for this patient, rectal exam was done-stool was guaiac negative, labs showed an anemia-there was not a recent CBC to compare it with however. Chest x-ray showed bilateral patchy infiltrates, patient was felt to be in CHF. Patient was admitted to PCU, initially he was felt to have community-acquired pneumonia-this examiner did not believe that he had community-acquired pneumonia. Respiratory panel was obtained on the patient which was negative for tested pathogens, patient was treated with IV Lasix, he underwent an EGD and a colonoscopy-now evidence of active bleeding was noted, colonoscopy revealed diverticulosis in the sigmoid colon and one small 5 mm polyp was noted to be present. Patient's Lasix was initially held but was restarted when it was felt that the patient had CHF rather than pneumonia, his breathing improved but at the time of discharge, he still required supplemental oxygen. Patient was seen in consultation by pulmonary medicine however, the patient's daughter and the patient elected to follow-up with his fourth mate who is Dr. Caldera. Patient was set up with home O2. Patient was discharged in stable condition on 11/12/2019 On 11/12/2019, patient was seen and examined: On examination he appeared in good health and spirits. Vital signs as documented. Skin warm and dry and without overt rashes. Neck without JVD. Lungs clear. Heart exam notable for irregular rhythm, normal sounds and absence of murmurs. Abdomen unremarkable and without evidence of organomegaly, masses, or abdominal aortic enlargement. Extremities nonedematous. Neuro: Cranial nerves II through XII are grossly intact, no focal motor deficits were noted, sensation to light touch and pinprick intact. Psych: Patient is alert and oriented x3, he does not appear anxious or depressed - Physical Exam Vitals/I&O's: Vital Signs Temp Pulse Resp BP Pulse Ox 97.8 F 89 18 116/56 L 98 11/12/19 14:02 11/12/19 14:02 11/12/19 14:02 11/12/19 14:02 11/12/19 14:02 Oxygen Flow Rate (L/min) [ 3 AMBULATION with Oxygen] Oxygen Flow Rate (L/min) 2 Oxygen Delivery Method Nasal Cannula Weight: 97.8 kg Body Mass Index (BMI) 32.8 Orthostatic Vital Signs Start: 11/09/19 08:27 Freq: q24h Status: Active Protocol: Activity Type Activity Date Activity User E-Sign Co-Sign Detail Recorded Client Recorded Date Recorded By Document 11/12/19 03:30 [facility] [id number] 11/12/19 04:03 MAB 11/12/19 03:30 Orthostatic Vitals Standing -Blood Pressure (90/60-120/80) 112/53 L -Extremity Use Right Arm -Pulse Rate (60-100) 105 H Sitting -Blood Pressure (90/60-120/80) 107/50 L -Extremity Use Right Arm -Pulse Rate (60-100) 102 H Lying -Blood Pressure (90/60-120/80) 115/59 L -Extremity Use Right Arm -Pulse Rate (60-100) 92 Intake and Output for Last 24 Hours 11/12/19 11/13/19 11/14/19 23:59 23:59 23:59 Intake Total 330 / 330 Output Total 300 / 300 Balance 30 / 30 Microbiology Past 72 Hours 11/08/19 18:30 Blood Culture (Wb) - Anticubital Right Blood Culture - Final No growth in 5 days. 11/08/19 18:40 Blood Culture (Wb) - Anticubital Left Blood Culture - Final No growth in 5 days. 11/11/19 10:45 Mucosa - Nasopharyngeal Respiratory Panel (PCR) - Final Discharge Activity: Return to Normal Activity Weight Bearing Status: Full weight bearing Home Medications: Medications to take at Discharge Acetaminophen [Tylenol] 650 mg PO PRN PRN 01/17/16 Multivitamin [Daily Multiple Vitamin] 1 tab PO DAILY 01/17/16 Gabapentin [Neurontin] 300 mg PO DAILY #30 capsule 02/08/16 Aspirin [Aspirin, Baby] 81 mg PO DAILY@0800 04/16/18 Levothyroxine [Synthroid] 137 mcg PO DAILY 04/16/18 Albuterol Aerosols [Ventolin Aerosols] 2.5 mg INHALATION Q2H PRN PRN #90 vial.neb. 04/18/18 Simvastatin 40 mg PO QHS 11/08/19 Tamsulosin HCl 0.4 mg PO DAILY 11/08/19 Metoprolol Succinate [Toprol Xl] 25 mg PO DAILY 11/10/19 Furosemide [Lasix] 40 mg PO UD #45 tab 11/12/19 Iron Polysaccharide Complex [Ferrex 150] 150 mg PO BID #60 cap 11/12/19 Warfarin [Coumadin] 4 mg PO DAILY #1 tab 11/12/19 Following Prescrptions Were Given to Patient: Warfarin [Coumadin] 4 mg PO DAILY #1 tab Iron Polysaccharide Complex [Ferrex 150] 150 mg PO BID #60 cap Furosemide [Lasix] 40 mg PO UD #45 tab [facility] Primary Care Physician: Loida Tolentino MD [Primary Care Provider] - Please Follow Up With: Darci Caldera MD When: next week, get BMP rechecked as well as INR Please Follow Up With: Loida Tolentino MD Disposition: Home Minutes spent on discharge:: 32 Patient Condition:: Stable Medical Necessity - Tobacco Use Smoking Status: Current every day smoker Tobacco Use: Chew Meaningful Use Info Meaningful Use Diagnoses (Choose all that apply): CHF - CHF YANICK/ARB ordered at discharge?: No Reason YANICK/ARB not ordered?: Worsening renal disease Documented LVEF (%): 60 Inpatient E&M: [id number] Disch Hosp
--- NOTE | 2019-11-15 15:56 | CASEMGMT ---
DC DATE: 11.12.2019 DC DISPOSITION: home DC DIAGNOSIS: CHF LACE/STRATA: 08/04 F/U APPTS MADE PRIOR TO DC: daughter is nurse and is calling PCP for f/u appointment tomorrow. Pt also has appt with pulmonology his family will take him to this week. PRESCRIPTIONS ACQUIRED BY PT: yes Intro role of CM to patient via phone. Pt states his daughter is a nurse and is assisting him with questions and medications. Pt is feeling improved, no other questions re: instructions or medications. Rogelio DEGROOTN RN ACM
== END 2019-11-12 17:31 | disposition home or self-care (01) | DRG 291 ==
LOC: ED 18:14 → PCU 19:56
PROVIDERS: Anesthesiology; Internal Medicine; Surgery; Admitting Provider Hospitalist; Emergency Provider Emergency Medicine; PCP Internal Medicine; Visit Provider Internal Medicine
PROC: 0DJD8ZZ Inspection of Lower Intestinal Tract, Via Natural or Artificial Opening Endoscopic (ICD-10-PCS; CPT 45378; principal; 2019-11-10 11:55)
DX: I13.0 Hypertensive heart and chronic kidney disease with heart failure and stage 1 through stage 4 chronic kidney disease, or unspecified chronic kidney disease (principal); I50.31 Acute diastolic (congestive) heart failure; N17.9 Acute kidney failure, unspecified; I48.20 Chronic atrial fibrillation, unspecified; D50.9 Iron deficiency anemia, unspecified; R42 Dizziness and giddiness; I27.20 Pulmonary hypertension, unspecified; I25.10 Atherosclerotic heart disease of native coronary artery without angina pectoris; E03.9 Hypothyroidism, unspecified; K29.80 Duodenitis without bleeding; R79.1 Abnormal coagulation profile; T45.515A Adverse effect of anticoagulants, initial encounter; E78.5 Hyperlipidemia, unspecified; G47.30 Sleep apnea, unspecified; K57.30 Diverticulosis of large intestine without perforation or abscess without bleeding; G62.9 Polyneuropathy, unspecified; D12.5 Benign neoplasm of sigmoid colon; N40.0 Benign prostatic hyperplasia without lower urinary tract symptoms; Z86.73 Personal history of transient ischemic attack (TIA), and cerebral infarction without residual deficits; Z72.0 Tobacco use; Z85.038 Personal history of other malignant neoplasm of large intestine; Z95.3 Presence of xenogenic heart valve; Z87.74 Personal history of (corrected) congenital malformations of heart and circulatory system; Z95.1 Presence of aortocoronary bypass graft
CPT/HCPCS: 36415; 70450; 70551; 71045; 71250; 80048; 80053; 82274; 82607; 82728; 82746; 82962; 83540; 83550; 83605; 83735; 83880; 84443; 84484; 85014; 85018; 85025; 85610; 86850; 86900; 86901; 87040; 87633; 87804; 88305; 88342; 93005; 93306; 94640; 97110; 97162; 97166; 97530; 97535; 99251; 99285; 99406; J1756; J7030; J7040; J7050; Q9957; A4216; G0463; J1940; J2405